=== PATIENT | female | born 1930 | race Caucasian/White ===

== ENCOUNTER → 2017-01-04 | Day surgery (SDC) | payer MEDICARE ==
[~2017-01-04] MED LIST: AMLO5TAB96 PO; B COTAB3 PO; BENI40TA30 PO; BUME0.5T PO; CARV6.25 PO; FERR324T4 PO; GABA300 PO; IMDU60TA PO; LEVO.05 PO; LIDOCAINE 1.5%/EPINEPHrine 1:200,000 PF SOLN 30 ML AMP ONE; PROPOFOL 200 MG/20 ML AMP IV ONE; PROT40TA PO; SODIUM CHLOR 0.9% 1000 ML BAG IV ONE; ULOR40TA PO; VITA500T49 PO; ZOCO40TA PO; ceFAZolin INJ 1,000 MG VIAL ONE
--- NOTE | 2017-01-07 09:32 | MP ---
cc: DARLYN MCGOWAN DATE OF SURGERY 01/04/2017 PREOPERATIVE DIAGNOSIS Non-used left brachiocephalic AV fistula. POSTOPERATIVE DIAGNOSIS Non-used left brachiocephalic AV fistula. PROCEDURE Sacrifice ligation left brachiocephalic AV fistula. SURGEON Darlyn Mcgowan MD ANESTHESIA Local MAC DESCRIPTION OF PROCEDURE With the patient in the supine position, IV sedation was induced, the right left arm then prepped with Betadine and draped in a sterile fashion. Following a protocol time-out, the skin and subcutaneous tissue within the proposed incisional area was preemptively infiltrated with 1% Xylocaine with epinephrine. The old AV fistula creation scar was re-incised. The cephalic vein immediately proximal to the arterial anastomosis was circumferentially mobilized and triply ligated with 3-0 silk. Strict hemostasis was assured. The incision was closed with continuous subcuticular 5-0 Monocryl. Steri-Strips and sterile gauze dressing applied. No operative complications. The patient returned to the recovery room in stable condition having tolerated procedure well. MD CELESTE Mar/CHANDNI /5:38 PM /9:29 AM
== END | disposition home or self-care (01) ==
LOC: ESDC 13:55
PROVIDERS: ATTEND Surgery Vascular Surgery
DX: Z45.2 Encounter for adjustment and management of vascular access device (principal); N18.6 End stage renal disease
CPT/HCPCS: 01844; 37607; J0690; J3010; J7030

== ENCOUNTER → 2017-04-07 | Outpatient (CLI) | payer MEDICARE ==
[~2017-04-07] MED LIST changes: +AMLO5 PO; +ASPI-110 PO; +BENI40TA3 PO; +BUME1TAB PO; +FERR325T8 PO; +FISH1200 PO; +GABA300C5 PO; +ISOS60TA PO; -LIDOCAINE 1.5%/EPINEPHrine 1:200,000 PF SOLN 30 ML AMP ONE; +LIPI40TA PO; -PROPOFOL 200 MG/20 ML AMP IV ONE; -SODIUM CHLOR 0.9% 1000 ML BAG IV ONE; +VITA10004 PO; +VITACAP7 PO; -ceFAZolin INJ 1,000 MG VIAL ONE
[2017-04-07 10:05] LABS: HEMATOCRIT 31.3 % (35.0-46.0); MEAN CELL VOLUME 98.8 FL (80.0-100.0); MEAN CORPUSCULAR HEMOGLOBIN 32.6 PG (27.0-34.0); PLATELET COUNT 201 TH/MM3 (150-450); RED BLOOD COUNT 3.17 MIL/MM3 (4.00-5.30); RED CELL DISTRIBUTION WIDTH 14.1 % (11.6-17.2); REVIEW FLAG FINAL; WHITE BLOOD COUNT 7.6 TH/MM3 (4.0-11.0)
[2017-04-07 10:12] LABS: BACTERIA, URINE MOD /hpf; BLOOD, URINE NEG (NEG); COMMENT (UR) CATH-CULTURE IND; CULTURE IF INDICATED CATH CULTURE IND; GLUCOSE,URINE NEG (NEG); KETONE, URINE NEG (NEG); NITRITE,URINE POS (NEG); SQUAMOUS EPITHELIAL CELL URINE 1 /hpf (0-5); URINE COLOR YELLOW (YELLW/STRAW)
[2017-04-07 10:15] LABS: APTT (PATIENT) 27.5 SEC (24.3-30.1); PROTHROMBIN TIME - PATIENT 10.6 SEC (9.8-11.6)
[2017-04-07 10:48] LABS: BICARBONATE 31.1 MEQ/L (21.0-32.0)
--- NOTE | 2017-04-07 14:38 | EKG ---
Date Performed: 04/07/2017 Time Performed: 09:23:00 PTAGE: 86 years EKG: ATRIAL FIBRILLATION LOW QRS VOLTAGE DELAYED R WAVE PROGRESSION ABNORMAL ECG PREVIOUS TRACING : 11/25/2011 10.47 Compared to prior tracing no significant change DOCTOR: Mo Andrews Interpretating Date/Time 04/07/2017 14:36:32
== END ==
LOC: CPRE 08:47
PROVIDERS: ATTEND Orthopaedic Surgery
DX: Z01.810 Encounter for preprocedural cardiovascular examination (principal); Z01.812 Encounter for preprocedural laboratory examination; M79.609 Pain in unspecified limb; I10 Essential (primary) hypertension; M19.012 Primary osteoarthritis, left shoulder; B96.20 Unspecified Escherichia coli [E. coli] as the cause of diseases classified elsewhere; I48.91 Unspecified atrial fibrillation; R82.90 Unspecified abnormal findings in urine
CPT/HCPCS: 36415; 80048; 81001; 85027; 85610; 85730; 87077; 87086; 87186; 93005

== ENCOUNTER → 2017-04-23 | Outpatient (CLI) | payer MEDICARE ==
[~2017-04-23] MED LIST changes: -AMLO5TAB96 PO; -B COTAB3 PO; -BENI40TA30 PO; -BUME0.5T PO; -FERR324T4 PO; -GABA300 PO; -IMDU60TA PO; -PROT40TA PO; -VITA500T49 PO; -ZOCO40TA PO
[2017-04-23 11:18] LABS: BACTERIA, URINE RARE /hpf; BLOOD, URINE NEG (NEG); COMMENT (UR) CULT NOT INDICATED; CULTURE IF INDICATED CULT NOT INDICATED; GLUCOSE,URINE NEG (NEG); HYALINE CAST, URINE 4 /lpf (RARE); KETONE, URINE NEG (NEG); MUCUS URINE FEW /lpf (OCC); NITRITE,URINE NEG (NEG); SQUAMOUS EPITHELIAL CELL URINE 2 /hpf (0-5); URINE COLOR YELLOW (YELLW/STRAW)
== END ==
LOC: CPRE 09:42
PROVIDERS: ATTEND Orthopaedic Surgery
DX: Z01.812 Encounter for preprocedural laboratory examination (principal)
CPT/HCPCS: 81001

== ENCOUNTER 2017-07-29 10:33 | Inpatient (IN) | payer MEDICARE ==
[~2017-07-29] VITALS: Ht 160 cm; Wt 96.5 kg
[2017-07-29] VITALS (16 sets, daily range): BP systolic 116–208; BP diastolic 57–100; PULSE 12–93; RESP 13–28; TEMP 97.7; O2SAT 93–100
[~2017-07-29 10:33] MED LIST changes: -ASPI-110 PO; +ASPI1TAB57 PO; +BENI40TA29 PO; -BENI40TA3 PO; +FERR325T18 PO; -FERR325T8 PO
--- NOTE | 2017-07-29 11:23 | PD ---
HPI Chief Complaint: Respiratory Symptoms Time Seen by Provider: 11:03 Travel History International Travel<30 days: No Contact w/Intl Traveler<30days: No Traveled to known affect area: No History of Present Illness HPI 87yo F presented to the ED via [facility] for SOB. Pt is a poor historian and disoriented, so limited history was obtained and unaware of her baseline mental status. She did state that she feels "lowsy" and "sometimes feels SOB and sometimes has chest pain." Per [facility], she was at 86% O2 saturation on room air, and went up to 95% saturation with 2L on nasal cannula. Per the nurse, she has a history of CHF, COPD, and AFib. Pt does live alone and was able to call [facility] on her own. I was unable to obtain much of a ROS due to patient's current mental status, but she did report some leg swelling, SOB and chest pain. Modifying Factors: None Associated Signs & Symptoms: Worsening respiratory distress, disorientation Risk Factors: Elderly, CHF history, COPD PFSH Past Medical History Hx Anticoagulant Therapy: Yes Arthritis: Yes Asthma: No Atrial Fibrillation: Yes Autoimmune Disease: No Blood Disorders: Yes (ANEMIA) Anxiety: No Heart Rhythm Problems: Yes (A FIB) Cancer: No Cardiovascular Problems: Yes High Cholesterol: Yes Chest Pain: No Congestive Heart Failure: Yes COPD: No Cerebrovascular Accident: No Diabetes: No Diminished Hearing: Yes ([place]) Endocrine: No GERD: No Gout: Yes Genitourinary: Yes (INCONTINENCE) Hepatitis: No Hiatal Hernia: No Heparin Induced Thrombocytopen: No Hypertension: Yes Immune Disorder: Yes (ANEMIA) Implanted Vascular Access Dvce: Yes Kidney Stones: No Medical other: Yes Musculoskeletal: Yes (GOUT, OA) Neurologic: Yes (NEUROPATHY) Psychiatric: No Reproductive: No Respiratory: Yes Immunizations Current: Yes Migraines: No Renal Failure: Yes (1995) Seizures: No Sickle Cell Disease: No Sleep Apnea: No Thyroid Disease: Yes Ulcer: No Past Surgical History Abdominal Surgery: Yes (HERNIA REPAIR) Arteriovenous Shunt: No Body Medical Devices: DISABLED FISTULA LEFT ARM Cardiac Surgery: No Ear Surgery: No Endocrine Surgery: Yes (thyroidectomy) Eye Surgery: Yes (BILAT CATARACTS WITH LENS IMPLANTS) Genitourinary Surgery: Yes (LEFT UPPER ARM FISTULA AND THEN DISABLED) Gynecologic Surgery: Yes (hysterectomy) Hysterectomy: Yes Insulin Pump: No Joint Replacement: Yes (TOTAL KNEE REPLACED 2004 AND 2007) Oral Surgery: Yes (ENDENTURELESS) Thoracic Surgery: No Other Surgery: Yes (THYROIDECTOMY ) Social History Alcohol Use: No Tobacco Use: No Substance Use: No Allergies-Medications (Allergen,Severity, Reaction): Coded Allergies: hydrochlorothiazide (Unverified Allergy, Severe, HIVES, 07/29/17) adhesive (Unverified Allergy, Intermediate, Rash, 07/29/17) allopurinol (Unverified Allergy, Intermediate, HIVES,FEVER, 07/29/17) Uncoded Allergies: PETROLIUM (Allergy, Severe, BLISTERS, 09/19/07) ANY PETROLIUM BASED MEDS LASIX (Allergy, Unknown, UNKNOWN, 11/25/11) VERIFIED WITH DAUGHTER, ROBERT HERRERA ON 11/25/11 Reported Meds & Prescriptions Reported Meds & Active Scripts Active Reported Fish Oil 1200 mg ([place]-3 Fatty Acids) 360 Mg-1,200 Mg Cap 1 Cap PO DAILY Aspirin 81 (Aspirin) 81 Mg Tabdr 81 Mg PO DAILY Ferrous Sulfate 325 Mg (65 Mg Iron) Tablet 325 Mg PO DAILY Vitamin B-12 Cr (Cyanocobalamin) 1,000 Mcg Tab 500 Mcg PO DAILY B Complex (B-Complex Vitamins) 1 Cap 1 Cap PO DAILY Uloric (Febuxostat) 40 Mg Tab 40 Mg PO DAILY Bumetanide 1 Mg Tab 1 Mg PO DAILY Lipitor (Atorvastatin Calcium) 40 Mg Tab 40 Mg PO HS Gabapentin 300 Mg Cap 300 Mg PO HS Norvasc (Amlodipine Besylate) 5 Mg Tab 5 Mg PO DAILY Benicar (Olmesartan) 40 Mg Tab 40 Mg PO DAILY Coreg (Carvedilol) 6.25 Mg Tab 6.25 Mg PO BID Isosorbide Mononitrate ER (Isosorbide Mononitrate) 60 Mg Tab 60 Mg PO DAILY Synthroid (Levothyroxine Sodium) 50 Mcg Tab 50 Mcg PO DAILY Review of Systems Except as stated in HPI: all other systems reviewed are Neg Physical Exam Exam Limitations: Poor Historian Narrative GENERAL: 87yo F who is well-developed and well nourished. Alert and oriented to person and place. Poor historian due to disorientation, in moderate respiratory distress. SKIN: Warm and dry. HEAD: Atraumatic. Normocephalic. ENT: No nasal bleeding or discharge. Mucous membranes pink and moist. NECK: Trachea midline. No JVD. CARDIOVASCULAR: Tachycardiac with regular rhythm. RESPIRATORY: No accessory muscle use. Breath sounds diminished bilaterally. Rales bilaterally. GASTROINTESTINAL: Abdomen soft, non-tender, nondistended. Hepatic and splenic margins not palpable. MUSCULOSKELETAL: Extremities without clubbing, cyanosis, or edema. No obvious deformities. NEUROLOGICAL: Awake and alert. No obvious cranial nerve deficits. Motor grossly within normal limits. Normal speech. PSYCHIATRIC: Appropriate mood and affect; insight and judgment normal. Data Data Last Documented VS Vital Signs Date Time Temp Pulse Resp B/P (MAP) Pulse Ox O2 Delivery O2 Flow Rate FiO2 07/29/17 13:51 89 27 172/78 (109) 94 4.00 07/29/17 11:29 Nasal Cannula 07/29/17 11:13 97.7 Orders Orders Complete Blood Count With Diff (07/29/17 11:03) Comprehensive Metabolic Panel (07/29/17 11:03) B-Type Natriuretic Peptide (07/29/17 11:03) Iv Access Insert/Monitor (07/29/17 11:03) Electrocardiogram (07/29/17 11:03) Ecg Monitoring (07/29/17 11:03) Oximetry (07/29/17 11:03) Oxygen Administration (07/29/17 11:03) Chest, Single Ap (07/29/17 11:03) Sodium Chloride 0.9% Flush (Ns Flush) (07/29/17 11:15) Furosemide Inj (Lasix Inj) (07/29/17 13:45) Resp Request For Service (07/29/17 13:42) Arterial Blood Gas (Abg) (07/29/17 13:42) Vital Signs (Adult) LEVON.Q4H (07/29/17 13:54) Resp Oxygen Robert C Titrat 1-4 L (07/29/17 ) Basic Metabolic Panel (Bmp) (07/30/17 06:00) Ondansetron Inj (Zofran Inj) (07/29/17 14:00) Acetaminophen (Tylenol) (07/29/17 14:00) Admit Order (Ed Use Only) (07/29/17 14:02) Labs Laboratory Tests Test 07/29/17 11:25 07/29/17 13:57 White Blood Count 9.1 TH/MM3 Red Blood Count 3.65 MIL/MM3 Hemoglobin 12.0 GM/DL Hematocrit 37.2 % Mean Corpuscular Volume 101.8 FL Mean Corpuscular Hemoglobin 32.7 PG Mean Corpuscular Hemoglobin Concent 32.1 % Red Cell Distribution Width 16.3 % Platelet Count 197 TH/MM3 Mean Platelet Volume 8.5 FL Neutrophils (%) (Auto) 70.3 % Lymphocytes (%) (Auto) 19.5 % Monocytes (%) (Auto) 9.2 % Eosinophils (%) (Auto) 0.3 % Basophils (%) (Auto) 0.7 % Neutrophils # (Auto) 6.4 TH/MM3 Lymphocytes # (Auto) 1.8 TH/MM3 Monocytes # (Auto) 0.8 TH/MM3 Eosinophils # (Auto) 0.0 TH/MM3 Basophils # (Auto) 0.1 TH/MM3 CBC Comment AUTO DIFF Differential Total Cells Counted 100 Neutrophils % (Manual) 74 % Lymphocytes % 15 % Monocytes % 9 % Eosinophils % 1 % Neutrophils # (Manual) 6.8 TH/MM3 Metamyelocytes 1 % Nucleated Red Blood Cells 4 /100 WBC Differential Comment FINAL DIFF MANUAL Platelet Estimate NORMAL Platelet Morphology Comment NORMAL Ovalocytes 1+ Blood Urea Nitrogen 30 MG/DL Creatinine 2.18 MG/DL Random Glucose 107 MG/DL Total Protein 7.2 GM/DL Albumin 3.5 GM/DL Calcium Level 8.7 MG/DL Alkaline Phosphatase 56 U/L Aspartate Amino Transf (AST/SGOT) 9 U/L Alanine Aminotransferase (ALT/SGPT) 18 U/L Total Bilirubin 0.5 MG/DL Sodium Level 144 MEQ/L Potassium Level 4.6 MEQ/L Chloride Level 107 MEQ/L Carbon Dioxide Level 33.2 MEQ/L Anion Gap 4 MEQ/L Estimat Glomerular Filtration Rate 21 ML/MIN B-Type Natriuretic Peptide 861 PG/ML Blood Gas Puncture Site RT RADIAL Blood Gas Patient Temperature 98.6 Blood Gas HCO3 31 mmol/L Blood Gas Base Excess 0.8 mmol/L Blood Gas Oxygen Saturation 93 % Arterial Blood pH 7.03 Arterial Blood Partial Pressure CO2 124 mmHg Arterial Blood Partial Pressure O2 99 mmHG Arterial Blood Oxygen Content 15.7 Vol % Arterial Blood Carboxyhemoglobin 2.1 % Arterial Blood Methemoglobin 0.5 % Blood Gas Hemoglobin 11.9 G/DL Oxygen Delivery Device NASAL CANNULA Blood Gas Liter Flow 3 L/M MDM Medical Decision Making Medical Screen Exam Complete: Yes Emergency Medical Condition: Yes Medical Record Reviewed: Yes Interpretation(s) EKG shows A. fib at a rate of 88 bpm with no signs of acute ST-T changes. Laboratory Tests Test 07/29/17 11:25 07/29/17 13:57 Red Blood Count 3.65 MIL/MM3 (4.00-5.30) Mean Corpuscular Volume 101.8 FL (80.0-100.0) Neutrophils (%) (Auto) 70.3 % (16.0-70.0) Monocytes (%) (Auto) 9.2 % (0.0-8.0) Neutrophils % (Manual) 74 % (16-70) Monocytes % 9 % (0-8) Nucleated Red Blood Cells 4 /100 WBC (0-0) Ovalocytes 1+ (NORMAL) Blood Urea Nitrogen 30 MG/DL (7-18) Creatinine 2.18 MG/DL (0.50-1.00) Random Glucose 107 MG/DL (74-106) Aspartate Amino Transf (AST/SGOT) 9 U/L (15-37) Carbon Dioxide Level 33.2 MEQ/L (21.0-32.0) Anion Gap 4 MEQ/L (5-15) Estimat Glomerular Filtration Rate 21 ML/MIN (>89) B-Type Natriuretic Peptide 861 PG/ML (0-100) Blood Gas HCO3 31 mmol/L (22-26) Arterial Blood pH 7.03 (7.380-7.420) Arterial Blood Partial Pressure CO2 124 mmHg (38-42) Blood Gas Hemoglobin 11.9 G/DL (12.0-16.0) Last 24 hours Impressions Chest X-Ray 07/29/17 1103 Signed Impressions: Service Date/Time: July 11:38 - CONCLUSION: Normal examination except for some increased density left lung base could be a small area of consolidation or pleural effusion. Van Salmon MD Differential Diagnosis Respiratory distress, altered mental status: Pneumonia versus sepsis versus dehydration versus CHF versus COPD exacerbation versus dysrhythmias Narrative Course Symptoms and lab work would indicate underlying CHF. Lasix was ordered for the patient and she was put on oxygen. Lab work did not show significant metabolic issues. Her saturations are improved. However, on reevaluation an hour later after family had come in to see the patient, the patient looked much more lethargic. ABG was ordered on the patient. Case had been discussed with Dr. Ball for admission at this point. ABG returned and she had notable respiratory acidosis. At this point, BiPAP had been ordered and bicarbonate was ordered for the patient because of severe acidosis. I have discussed the findings with the family and have discussed CODE STATUS with the family and patient's daughter states that patient has actually expressed DNR wishes before and it is documented in her long term paperwork as well as during previous surgical treatment. At this point, DNR paperwork was entered for the patient. Diagnosis Primary Impression: Hypercapnic respiratory failure Qualified Codes: J96.02 - Acute respiratory failure with hypercapnia Admitting Information Admitting Physician Requests: Admit Vipul García MD Jul 29, 2017 11:23
[2017-07-29 11:57] LABS: AUTOMATED NEUTROPHIL # 6.4 TH/MM3 (1.8-7.7); BASOPHIL # 0.1 TH/MM3 (0-0.2); BASOPHIL % 0.7 % (0.0-2.0); EOSINOPHIL % 0.3 % (0.0-4.0); HEMATOCRIT 37.2 % (35.0-46.0); LYMPH % 19.5 % (9.0-44.0); LYMPHOCYTE # 1.8 TH/MM3 (1.0-4.8); MEAN CELL VOLUME 101.8 FL (80.0-100.0); MEAN CORPUSCULAR HEMOGLOBIN 32.7 PG (27.0-34.0); MEAN CORPUSCULAR HGB CONC 32.1 % (32.0-36.0); MEAN PLATELET VOLUME 8.5 FL (7.0-11.0); MONO % 9.2 % (0.0-8.0); MONOCYTE # 0.8 TH/MM3 (0-0.9); NEUT % 70.3 % (16.0-70.0); PLATELET COUNT 197 TH/MM3 (150-450); RED BLOOD COUNT 3.65 MIL/MM3 (4.00-5.30); RED CELL DISTRIBUTION WIDTH 16.3 % (11.6-17.2); WHITE BLOOD COUNT 9.1 TH/MM3 (4.0-11.0)
--- NOTE | 2017-07-29 12:02 | RADRPT ---
EXAM DATE/TIME: 07/29/2017 11:38 [place] COMPARISON: No previous studies available for comparison. INDICATIONS : Short of breath, confusion, weakness. MEDICAL HISTORY : Renal failure, acute. SURGICAL HISTORY : None. ENCOUNTER: Initial ACUITY: 1 day PAIN SCORE: Non-responsive. LOCATION: Bilateral chest FINDINGS: A single view of the chest demonstrates the lungs to be symmetrically aerated without evidence of mas s, infiltrate or effusion except at the left lung base. The cardiomediastinal contours are unremarka ble. Osseous structures are intact. CONCLUSION: Normal examination except for some increased density left lung base could be a small area of consolid ation or pleural effusion. Van Salmon MD on July 29, 2017 at 11:59 Board Certified Radiologist. This report was verified electronically.
[2017-07-29 12:05] LABS: ALBUMIN 3.5 GM/DL (3.4-5.0); ALT (GPT) 18 U/L (10-53); AST (GOT) 9 U/L (15-37); BICARBONATE 33.2 MEQ/L (21.0-32.0); BLOOD UREA NITROGEN 30 MG/DL (7-18); CALCIUM 8.7 MG/DL (8.5-10.1); CHLORIDE 107 MEQ/L (98-107); CREATININE 2.18 MG/DL (0.50-1.00); GLOMERULAR FILTRATION RATE 21 ML/MIN (>89); GLUCOSE,RANDOM 107 MG/DL (74-106); SODIUM (NA) 144 MEQ/L (136-145)
[2017-07-29 12:07] LABS: ALKALINE PHOSPHATASE 56 U/L (45-117); TOTAL BILIRUBIN ADULT 0.5 MG/DL (0.2-1.0); TOTAL PROTEIN 7.2 GM/DL (6.4-8.2)
[2017-07-29 12:30] LABS: CORRECTED NUCLEATED RBC 4 /100 WBC (0-0); LYMPHOCYTES 15 % (9-44); METAMYELOCYTES 1 % (0-1); MONOCYTES 9 % (0-8); NEUTROPHIL # MANUAL DIFF 6.8 TH/MM3 (1.8-7.7); NUCLEATED RED BLOOD CELL 4 (0-0); POLYS (SEG NEUTROPHILS) 74 % (16-70)
[2017-07-29 12:31] LABS: OVALOCYTES 1+ (NORMAL)
[2017-07-29] MEDS ORDERED: FUROSEMIDE 40 MG/4 ML VIAL IV PUSH ONE (13:45)
[2017-07-29] MEDS ORDERED: ONDANSETRON HCL 4 MG/2 ML VIAL IV PUSH PRN (14:00)
[2017-07-29] MEDS ORDERED: ACETAMINOPHEN 325 MG TAB PO PRN (14:00)
[2017-07-29] MEDS ORDERED: SODIUM BICARBONATE 8.4% INJ 50 MEQ/50 ML SYR IV PUSH ONE (14:15)
[2017-07-29] MEDS ORDERED: ENALAPRILAT 1.25 MG/ML VIAL IV PUSH PRN (14:30)
--- NOTE | 2017-07-29 14:37 | HHI.HP ---
[facility] Service [facility] Primary Care Physician Kodi Maier MD Admission Diagnosis CHF Diagnoses: (1) Hypercapnic respiratory failure Diagnosis: Principal Chief Complaint: generalized weakness Travel History International Travel<30 Days: No Contact w/Intl Traveler <30 Da: No Traveled to Known Affected Are: No History of Present Illness patient is a 87 y/o female with history of CHF, hypertension, CKD, was brought to ER with altered mental status. the patient was lethargic at the time of my evaluation and most of the information was obtained from her daughter at the bedside. she says that she hasn't been as active for the past few days. there's no definite report of chest pain, fever. although she says that she's had some sob recently. she lives alone but being helped by the daughter few days a week. she normally walks around the house with using her cane. she says that her son few months ago and since then her condition seems to be declining. she says that ' her mother said ( a few times) that she was just tired '. Review of Systems ROS Limitations: Altered Mental Status Past Family Social History Past Medical History hypertension CHF CKD Hypothyroidism Past Surgical History knee replacement thyroidectomy AV fistula placement Reported Medications Fish Oil 1200 mg ([place]-3 Fatty Acids) 360 Mg-1,200 Mg Cap 1 Cap PO DAILY Aspirin 81 (Aspirin) 81 Mg Tabdr 81 Mg PO DAILY Ferrous Sulfate 325 Mg (65 Mg Iron) Tablet 325 Mg PO DAILY Vitamin B-12 Cr (Cyanocobalamin) 1,000 Mcg Tab 500 Mcg PO DAILY B Complex (B-Complex Vitamins) 1 Cap 1 Cap PO DAILY Uloric (Febuxostat) 40 Mg Tab 40 Mg PO DAILY Bumetanide 1 Mg Tab 1 Mg PO DAILY Lipitor (Atorvastatin Calcium) 40 Mg Tab 40 Mg PO HS Gabapentin 300 Mg Cap 300 Mg PO HS Norvasc (Amlodipine Besylate) 5 Mg Tab 5 Mg PO DAILY Benicar (Olmesartan) 40 Mg Tab 40 Mg PO DAILY Coreg (Carvedilol) 6.25 Mg Tab 6.25 Mg PO BID Isosorbide Mononitrate ER (Isosorbide Mononitrate) 60 Mg Tab 60 Mg PO DAILY Synthroid (Levothyroxine Sodium) 50 Mcg Tab 50 Mcg PO DAILY Allergies: Coded Allergies: hydrochlorothiazide (Unverified Allergy, Severe, HIVES, 07/29/17) adhesive (Unverified Allergy, Intermediate, Rash, 07/29/17) allopurinol (Unverified Allergy, Intermediate, HIVES,FEVER, 07/29/17) Uncoded Allergies: PETROLIUM (Allergy, Severe, BLISTERS, 09/19/07) ANY PETROLIUM BASED MEDS LASIX (Allergy, Unknown, UNKNOWN, 11/25/11) VERIFIED WITH DAUGHTER, ROBERT HERRERA ON 11/25/11 Active Ordered Medications Inpatient Medications Acetaminophen (Tylenol) 650 mg Q4H PRN PO FEVER/PAIN 1-2; Start 07/29/17 at 14: 00 Furosemide (Lasix Inj) 40 mg ONCE ONCE IV PUSH Last administered on 07/29/17at 13:47; Start 07/29/17 at 13:45; Stop 07/29/17 at 13:46; Status DC Ondansetron HCl (Zofran Inj) 4 mg Q8HR PRN IV PUSH NAUSEA; Start 07/29/17 at 14 :00 Sodium Bicarbonate (Sodium Bicarbonate 8.4% Inj) 50 meq ONCE ONCE IV PUSH ; Start 07/29/17 at 14:15; Stop 07/29/17 at 14:16; Status DC Sodium Chloride (NS Flush) 2 ml UNSCH PRN IVF FLUSH AFTER USING IV ACCESS; Start 07/29/17 at 11:15 Family History not relevant to this admission. Social History lives alone at home but being helped by the daughter. Physical Exam Vital Signs Vital Signs Date Time Temp Pulse Resp B/P (MAP) Pulse Ox O2 Delivery O2 Flow Rate FiO2 07/29/17 13:51 89 27 172/78 (109) 94 4.00 07/29/17 11:29 88 22 195/87 (123) 94 Nasal Cannula 4.00 07/29/17 11:13 97.7 07/29/17 11:09 91 Nasal Cannula 3.00 07/29/17 11:03 28 94 Nasal Cannula 3.00 07/29/17 10:51 89 28 199/100 (133) 97 Physical Exam GENERAL:elderly female, lethargic- SKIN: No rashes, ecchymoses or lesions. Cool and dry. HEAD: Atraumatic. Normocephalic. No temporal or scalp tenderness. EYES: Pupils equal round and reactive. Extraocular motions intact. No scleral icterus. No injection or drainage. ENT: Nose without bleeding, purulent drainage or septal hematoma. Throat without erythema, tonsillar hypertrophy or exudate. Uvula midline. Airway patent. NECK: Trachea midline. No JVD or lymphadenopathy. Supple, nontender, no meningeal signs. CARDIOVASCULAR: Regular rate and rhythm without murmurs, gallops, or rubs. RESPIRATORY: Clear to auscultation. Breath sounds equal bilaterally. No wheezes , rales, or rhonchi. GASTROINTESTINAL: Abdomen soft, non-tender, nondistended. No hepato-splenomegaly , or palpable masses. No guarding. MUSCULOSKELETAL: Extremities with bilateral pedal edema. NEUROLOGICAL: lethargic- but opens the eyes briefly to calling her name. Laboratory Laboratory Tests Test 07/29/17 11:25 07/29/17 13:57 White Blood Count 9.1 Red Blood Count 3.65 Hemoglobin 12.0 Hematocrit 37.2 Mean Corpuscular Volume 101.8 Mean Corpuscular Hemoglobin 32.7 Mean Corpuscular Hemoglobin Concent 32.1 Red Cell Distribution Width 16.3 Platelet Count 197 Mean Platelet Volume 8.5 Neutrophils (%) (Auto) 70.3 Lymphocytes (%) (Auto) 19.5 Monocytes (%) (Auto) 9.2 Eosinophils (%) (Auto) 0.3 Basophils (%) (Auto) 0.7 Neutrophils # (Auto) 6.4 Lymphocytes # (Auto) 1.8 Monocytes # (Auto) 0.8 Eosinophils # (Auto) 0.0 Basophils # (Auto) 0.1 CBC Comment AUTO DIFF Differential Total Cells Counted 100 Neutrophils % (Manual) 74 Lymphocytes % 15 Monocytes % 9 Eosinophils % 1 Neutrophils # (Manual) 6.8 Metamyelocytes 1 Nucleated Red Blood Cells 4 Differential Comment FINAL DIFF MANUAL Platelet Estimate NORMAL Platelet Morphology Comment NORMAL Ovalocytes 1+ Blood Urea Nitrogen 30 Creatinine 2.18 Random Glucose 107 Total Protein 7.2 Albumin 3.5 Calcium Level 8.7 Alkaline Phosphatase 56 Aspartate Amino Transf (AST/SGOT) 9 Alanine Aminotransferase (ALT/SGPT) 18 Total Bilirubin 0.5 Sodium Level 144 Potassium Level 4.6 Chloride Level 107 Carbon Dioxide Level 33.2 Anion Gap 4 Estimat Glomerular Filtration Rate 21 B-Type Natriuretic Peptide 861 Blood Gas Puncture Site RT RADIAL Blood Gas Patient Temperature 98.6 Blood Gas HCO3 31 Blood Gas Base Excess 0.8 Blood Gas Oxygen Saturation 93 Arterial Blood pH 7.03 Arterial Blood Partial Pressure CO2 124 Arterial Blood Partial Pressure O2 99 Arterial Blood Oxygen Content 15.7 Arterial Blood Carboxyhemoglobin 2.1 Arterial Blood Methemoglobin 0.5 Blood Gas Hemoglobin 11.9 Oxygen Delivery Device NASAL CANNULA Blood Gas Liter Flow 3 Result Diagram: 07/29/17 1125 07/29/17 1125 Imaging Last Impressions Chest X-Ray 07/29/17 1103 Signed Impressions: Service Date/Time: July 11:38 - CONCLUSION: Normal examination except for some increased density left lung base could be a small area of consolidation or pleural effusion. MD Diallo Monterroso VTE Risk Assessment Diallo VTE Risk Assessment: Mod/High Risk (score >= 2) Caprini Risk Assessment Model Point Value = 1 Point Value = 2 Point Value = 3 Point Value = 5 Age 41-60 Minor surgery BMI > 25 kg/m2 Swollen legs Varicose veins or History of unexplained or recurrent spontaneous Oral contraceptives or hormone replacement Sepsis (< 1 month) Serious lung disease, including pneumonia (< 1 month) Abnormal pulmonary function Acute myocardial infarction Congestive heart failure (< 1 month) History of inflammatory bowel disease Medical patient at bed rest Age 61-74 Arthroscopic surgery Major open surgery (> 45 min) Laparoscopic surgery (> 45 min) Malignancy Confined to bed (> 72 hours) Immobilizing plaster cast Central venous access Age >= 75 History of VTE Family history of VTE Factor V Leiden Prothrombin [id number] Lupus anticoagulant Anticardiolipin antibodies Elevated serum homocysteine Heparin-induced thrombocytopenia Other congenital or acquired thrombophilia Stroke (< 1 month) Elective arthroplasty Hip, pelvis, or leg fracture Acute spinal cord injury (< 1 month) Prophylaxis Regimen Total Risk Factor Score Risk Level Prophylaxis Regimen 0-1 Low Early ambulation 2 Moderate Order ONE of the following: *Sequential Compression Device (SCD) *Heparin 5000 units SQ BID 3-4 Higher Order ONE of the following medications: *Heparin 5000 units SQ TID *Enoxaparin/Lovenox 40 mg SQ daily (WT < 150 kg, CrCl > 30 mL/min) *Enoxaparin/Lovenox 30 mg SQ daily (WT < 150 kg, CrCl > 10-29 mL/min) *Enoxaparin/Lovenox 30 mg SQ BID (WT < 150 kg, CrCl > 30 mL/min) AND/OR *Sequential Compression Device (SCD) 5 or more Highest Order ONE of the following medications: *Heparin 5000 units SQ TID (Preferred with Epidurals) *Enoxaparin/Lovenox 40 mg SQ daily (WT < 150 kg, CrCl > 30 mL/min) *Enoxaparin/Lovenox 30 mg SQ daily (WT < 150 kg, CrCl > 10-29 mL/min) *Enoxaparin/Lovenox 30 mg SQ BID (WT < 150 kg, CrCl > 30 mL/min) AND *Sequential Compression Device (SCD) Assessment and Plan Assessment and Plan A/P - acute hypercapnic respiratory failure / respiratory acidosis due to acute on chronic diastolic CHF start on BiPaP- monitor the ABG and clinical response -received a dose of lasix in ER- will continue with Lasix- monitor I/O- consult cardiology ( ) -CKD- at her baseline- will monitor closely while on diuretics -hypertension; will resume home meds when is more awake and alert -consult PT when is more awake -DVT prophylaxis with subq Lovenox -DNR / and hospice consult per my lengthy discussion with the patient's daughter. will monitor closely and will consider airplane technician evaluation- pending the clinical course and repeated ABG. critical care time 35 min. Code Status DNR. Discussed Condition With the patient's daughter and ER physician. Physician Certification 2 Midnight Certification Type: Admission for Inpatient Services Order for Inpatient Services The services are ordered in accordance with Medicare regulations or non- Medicare payer requirements, as applicable. In the case of services not specified as inpatient-only, they are appropriately provided as inpatient services in accordance with the 2-midnight benchmark. Estimated LOS (days): 2 days is the estimated time the patient will need to remain in the hospital, assuming treatment plan goals are met and no additional complications. Post-Hospital Plan: Not yet determined Problem Qualifiers (1) Hypercapnic respiratory failure: Qualified Codes: J96.02 - Acute respiratory failure with hypercapnia Wicho Ybarra MD Jul 29, 2017 14:37
[2017-07-29] MEDS ORDERED: FUROSEMIDE 20 MG/2 ML VIAL IV PUSH ONE (16:00)
[2017-07-29] MEDS: DEXT 5%-NACL 0.9% 1000 ML INJ 1,000 ML IV SCH (16:18)
--- NOTE | 2017-07-29 18:21 | HHI.PR ---
Addendum To [facility] Progress Not Reason for addendum: Additonal documentation (repeated ABG was reviewed. the patient is still lethargic. case and findings were d/w the RN, the patient's daughter and ; consult will be placed for bootmaker.) Wicho Ybarra MD Jul 29, 2017 18:21
[2017-07-29 18:26] LABS: AMORPHOUS SEDIMENT, URINE RARE; BACTERIA, URINE MANY /hpf; BILIRUBIN, URINE NEG (NEG); BLOOD, URINE NEG (NEG); GLUCOSE,URINE NEG (NEG); HYALINE CAST, URINE 3 /lpf (RARE); KETONE, URINE NEG (NEG); NITRITE,URINE NEG (NEG); PH, URINE 5.5 (5.0-8.5); SQUAMOUS EPITHELIAL CELL URINE 1 /hpf (0-5); URINE COLOR YELLOW (YELLW/STRAW); URINE LEUKOCYTE ESTERASE LARGE (NEG)
--- NOTE | 2017-07-29 18:57 | EKG ---
Date Performed: 07/29/2017 Time Performed: 11:24:29 PTAGE: 87 years EKG: ATRIAL FIBRILLATION LOW QRS VOLTAGE POSSIBLE ANTERIOR MYOCARDIAL INFARCTION ABNORMAL ECG PREVIOUS TRACING : 04/07/2017 09.23 Since previous tracing, no significant change noted DOCTOR: Trino Franco Interpretating Date/Time 07/29/2017 18:57:01
--- NOTE | 2017-07-29 20:00 | PD.CONS ---
HPI Service Critical Care Medicine Consult Requested By Primary Care Physician Kodi Maier MD History of Present Illness 87-year-old female with history of CHF, hypertension, CKD, was brought with altered mental status. Per chart review the patient hasn't been as active for the past few days. She lives alone but being helped by the daughter few days a week. She normally walks around the house with using her cane. She was initially admitted to hospitalist service with severe hypercarbic respiratory acidosis and was placed on BiPAP. There was no improvement in patient's mentation or respiratory condition as well as lab results on ABG and critical care service was consulted. Review of Systems ROS Unobtainable patient is lethargic on facemask BiPAP Past Family Social History Allergies: Coded Allergies: hydrochlorothiazide (Unverified Allergy, Severe, HIVES, 07/29/17) adhesive (Unverified Allergy, Intermediate, Rash, 07/29/17) allopurinol (Unverified Allergy, Intermediate, HIVES,FEVER, 07/29/17) Uncoded Allergies: PETROLIUM (Allergy, Severe, BLISTERS, 09/19/07) ANY PETROLIUM BASED MEDS LASIX (Allergy, Unknown, UNKNOWN, 11/25/11) VERIFIED WITH DAUGHTER, ROBERT HERRERA ON 11/25/11 Past Medical History hypertension CHF CKD Hypothyroidism Past Surgical History knee replacement thyroidectomy AV fistula placement Reported Medications Reported Meds & Active Scripts Active Reported Fish Oil 1200 mg ([place]-3 Fatty Acids) 360 Mg-1,200 Mg Cap 1 Cap PO DAILY Aspirin 81 (Aspirin) 81 Mg Tabdr 81 Mg PO DAILY Ferrous Sulfate 325 Mg (65 Mg Iron) Tablet 325 Mg PO DAILY Vitamin B-12 Cr (Cyanocobalamin) 1,000 Mcg Tab 500 Mcg PO DAILY B Complex (B-Complex Vitamins) 1 Cap 1 Cap PO DAILY Uloric (Febuxostat) 40 Mg Tab 40 Mg PO DAILY Bumetanide 1 Mg Tab 1 Mg PO DAILY Lipitor (Atorvastatin Calcium) 40 Mg Tab 40 Mg PO HS Gabapentin 300 Mg Cap 300 Mg PO HS Norvasc (Amlodipine Besylate) 5 Mg Tab 5 Mg PO DAILY Benicar (Olmesartan) 40 Mg Tab 40 Mg PO DAILY Coreg (Carvedilol) 6.25 Mg Tab 6.25 Mg PO BID Isosorbide Mononitrate ER (Isosorbide Mononitrate) 60 Mg Tab 60 Mg PO DAILY Synthroid (Levothyroxine Sodium) 50 Mcg Tab 50 Mcg PO DAILY Active Ordered Medications Current Medications Medications (Trade) Dose Ordered Sig/Rene Route PRN Reason Start Time Stop Time Status Last Admin Dose Admin Sodium Chloride (NS Flush) 2 ml UNSCH PRN IVF FLUSH AFTER USING IV ACCESS 07/29/17 11:15 Ondansetron HCl (Zofran Inj) 4 mg Q8HR PRN IV PUSH NAUSEA 07/29/17 14:00 Acetaminophen (Tylenol) 650 mg Q4H PRN PO FEVER/PAIN 1-2 07/29/17 14:00 Dextrose/Sodium Chloride 1,000 ml @ 60 mls/hr [id number] IV 07/29/17 14:30 07/29/17 16:18 Furosemide (Lasix Inj) 40 mg DAILY IV PUSH 07/30/17 09:00 Enalaprilat (Vasotec Inj) 1.25 mg Q8H PRN IV PUSH SBP> OR = 180, DBP> OR = 100 07/29/17 14:30 Enoxaparin Sodium (Lovenox Inj) 30 mg Q24H SQ 07/30/17 09:00 Family History Reviewed, not relevant to this admission Social History lives alone at home but being helped by the daughter. Physical Exam Vital Signs Vital Signs Date Time Temp Pulse Resp B/P (MAP) Pulse Ox O2 Delivery O2 Flow Rate FiO2 07/29/17 19:03 67 14 123/57 (79) 99 BiPAP 50 07/29/17 18:38 97 50 07/29/17 16:37 78 21 132/66 (88) 95 BiPAP 50 07/29/17 16:30 95 50 07/29/17 14:25 96 50 07/29/17 14:25 93 20 208/93 (131) 93 BiPAP 50 07/29/17 13:51 89 27 172/78 (109) 94 4.00 07/29/17 11:29 88 22 195/87 (123) 94 Nasal Cannula 4.00 07/29/17 11:13 97.7 07/29/17 11:09 91 Nasal Cannula 3.00 07/29/17 11:03 28 94 Nasal Cannula 3.00 07/29/17 10:51 89 28 199/100 (133) 97 Physical Exam GENERAL: Elderly appearing female, extremely lethargic in moderate respiratory distress SKIN: No rashes, ecchymoses or lesions. Cool and dry. HEAD: Atraumatic. Normocephalic. No temporal or scalp tenderness. EYES: Pupils equal round and reactive. Extraocular motions intact. No scleral icterus. No injection or drainage. ENT: Nose without bleeding, purulent drainage or septal hematoma. Throat without erythema, tonsillar hypertrophy or exudate. Uvula midline. Airway patent. NECK: Trachea midline. No JVD or lymphadenopathy. Supple, nontender, no meningeal signs. CARDIOVASCULAR: Regular rate and rhythm without murmurs, gallops, or rubs. RESPIRATORY: Clear to auscultation. Breath sounds equal bilaterally. No wheezes , rales, or rhonchi. GASTROINTESTINAL: Abdomen soft, non-tender, nondistended. No hepato-splenomegaly , or palpable masses. No guarding. MUSCULOSKELETAL: Extremities with bilateral pedal edema. NEUROLOGICAL: lethargic- but opens the eyes briefly to voice. Laboratory Laboratory Tests Test 07/29/17 11:25 07/29/17 13:57 07/29/17 17:40 07/29/17 18:08 White Blood Count 9.1 Red Blood Count 3.65 Hemoglobin 12.0 Hematocrit 37.2 Mean Corpuscular Volume 101.8 Mean Corpuscular Hemoglobin 32.7 Mean Corpuscular Hemoglobin Concent 32.1 Red Cell Distribution Width 16.3 Platelet Count 197 Mean Platelet Volume 8.5 Neutrophils (%) (Auto) 70.3 Lymphocytes (%) (Auto) 19.5 Monocytes (%) (Auto) 9.2 Eosinophils (%) (Auto) 0.3 Basophils (%) (Auto) 0.7 Neutrophils # (Auto) 6.4 Lymphocytes # (Auto) 1.8 Monocytes # (Auto) 0.8 Eosinophils # (Auto) 0.0 Basophils # (Auto) 0.1 CBC Comment AUTO DIFF Differential Total Cells Counted 100 Neutrophils % (Manual) 74 Lymphocytes % 15 Monocytes % 9 Eosinophils % 1 Neutrophils # (Manual) 6.8 Metamyelocytes 1 Nucleated Red Blood Cells 4 Differential Comment FINAL DIFF MANUAL Platelet Estimate NORMAL Platelet Morphology Comment NORMAL Ovalocytes 1+ Blood Urea Nitrogen 30 Creatinine 2.18 Random Glucose 107 Total Protein 7.2 Albumin 3.5 Calcium Level 8.7 Alkaline Phosphatase 56 Aspartate Amino Transf (AST/SGOT) 9 Alanine Aminotransferase (ALT/SGPT) 18 Total Bilirubin 0.5 Sodium Level 144 Potassium Level 4.6 Chloride Level 107 Carbon Dioxide Level 33.2 Anion Gap 4 Estimat Glomerular Filtration Rate 21 B-Type Natriuretic Peptide 861 Blood Gas Puncture Site RT RADIAL RT RADIAL Blood Gas Patient Temperature 98.6 98.6 Blood Gas HCO3 31 32 Blood Gas Base Excess 0.8 1.1 Blood Gas Oxygen Saturation 93 93 Arterial Blood pH 7.03 7.02 Arterial Blood Partial Pressure CO2 124 128 Arterial Blood Partial Pressure O2 99 87 Arterial Blood Oxygen Content 15.7 15.1 Arterial Blood Carboxyhemoglobin 2.1 2.2 Arterial Blood Methemoglobin 0.5 0.5 Blood Gas Hemoglobin 11.9 11.5 Oxygen Delivery Device NASAL CANNULA BIPAP Blood Gas Liter Flow 3 Blood Gas Ventilator Setting [id number] Blood Gas Inspired Oxygen 50 Urine Color YELLOW Urine Turbidity HAZY Urine pH 5.5 Urine Specific [place] 1.014 Urine Protein 100 Urine Glucose (UA) NEG Urine Ketones NEG Urine Occult Blood NEG Urine Nitrite NEG Urine Bilirubin NEG Urine Urobilinogen LESS THAN 2.0 Urine Leukocyte Esterase LARGE Urine RBC 1 Urine WBC 14 Urine Squamous Epithelial Cells 1 Urine Amorphous Sediment RARE Urine Bacteria MANY Urine Hyaline Casts 3 Microscopic Urinalysis Comment CATH-CULTURE IND Test 07/29/17 19:24 Blood Gas Puncture Site RT RADIAL Blood Gas Patient Temperature 98.6 Blood Gas HCO3 32 Blood Gas Base Excess 1.7 Blood Gas Oxygen Saturation 93 Arterial Blood pH 7.04 Arterial Blood Partial Pressure CO2 124 Arterial Blood Partial Pressure O2 84 Arterial Blood Oxygen Content 14.8 Arterial Blood Carboxyhemoglobin 2.2 Arterial Blood Methemoglobin 0.5 Blood Gas Hemoglobin 11.3 Oxygen Delivery Device BiPAP Blood Gas Ventilator Setting [id number] Blood Gas Inspired Oxygen 50 Date/Time Source Procedure Growth Status 07/29/17 18:08 Urine Catheterized Urine Urine Culture Pending Received Result Diagram: 07/29/17 1125 07/29/17 1125 Imaging Last 24 hours Impressions Chest X-Ray 07/29/17 1103 Signed Impressions: Service Date/Time: July 11:38 - CONCLUSION: Normal examination except for some increased density left lung base could be a small area of consolidation or pleural effusion. Van Salmon MD Septic Shock Reassessment Septic shock perfusion: reassessment completed Assessment and Plan Assessment and Plan Respiratory failure - Hypercarbic respiratory acidosis - DuoNeb scheduled and when necessary - BiPAP - Series of ABGs - Pulmonary consultation - Patient is DNR/DNI status Hypertension - Enalaprilat when necessary to keep SBP below 150 - Norvasc - Coreg - Losartan Congestive heart failure - Lasix when necessary - No exacerbation - BP control - Isosorbide mononitrate - Carvedilol - Losartan - Bumex Chronic kidney disease - Monitor is and os - Electrolytes replacement per ICU protocol - Bumex Hypothyroidism - Levothyroxine DVT GI prophylaxis - Teds SCDs - Lovenox - Heart healthy diet Critical Care: The total critical care time was 35 minutes. Time to perform other separately billable procedures was not included in the critical care time. Anthony Sneed MD Jul 29, 2017 20:00
[2017-07-29] MEDS ORDERED: RESP: ALBUTEROL 2.5 MG/IPRATROPIUM 0.5 MG NEB (PRN) NEB (21:45)
[2017-07-29] MEDS ORDERED: PILL SPLITTER OTHER PRN (23:45)
[2017-07-29] MEDS: RESP: ALBUTEROL 2.5 MG/IPRATROPIUM 0.5 MG NEB (SCH) NEB (23:51)
[2017-07-30] VITALS (19 sets, daily range): BP systolic 100–157; BP diastolic 50–105; PULSE 79–300; RESP 14–25; TEMP 96.6–98.7; O2SAT 0–100
[2017-07-30] MEDS: RESP: ALBUTEROL 2.5 MG/IPRATROPIUM 0.5 MG NEB (SCH) NEB ×5 (03:33→19:58)
[2017-07-30] MEDS: LEVOTHYROXINE SODIUM 50 MCG TAB PO SCH (05:44)
[2017-07-30] MEDS ORDERED: LORazepam 2 MG/ML VIAL ONE (07:19)
[2017-07-30] MEDS ORDERED: HALOPERIDOL LACTATE 5 MG/ML AMP IM ONE (07:30)
[2017-07-30] MEDS ORDERED: DEXMEDETOMIDINE 200 MCG/50 ML Premix IV PRN (08:15)
[2017-07-30] MEDS ORDERED: RASS Change Order XX ONE (08:30)
[2017-07-30] MEDS: ENOXAPARIN SODIUM 30 MG/0.3 ML SYRINGE SQ SCH (08:45)
[2017-07-30] MEDS: SODIUM CHLORIDE 0.9% FLUSH 10 ML FLUSH IVF PRN (08:46)
[2017-07-30] MEDS ORDERED: NON-FORMULARY DRUG (Omega-3 Fatty Acids (Fish Oil 1200 mg) 1 CAP) PO SCH (09:00)
[2017-07-30] MEDS: CYANOCOBALAMIN 1,000 MCG TAB PO SCH (09:00)
[2017-07-30] MEDS ORDERED: FEBUXOSTAT 40 MG PO SCH (09:00)
[2017-07-30] MEDS: CARVEDILOL 6.25 MG TAB PO SCH ×2 (09:00→19:33)
[2017-07-30] MEDS ORDERED: LOSARTAN 50 MG TAB PO SCH (09:00)
[2017-07-30] MEDS: FERROUS SULFATE 325 MG (65 MG ELEMENTAL IRON) TAB PO SCH (09:00)
[2017-07-30] MEDS: ISOSORBIDE MONONITRATE 60 MG TAB PO SCH (09:00)
[2017-07-30] MEDS: amLODIPine BESYLATE 5 MG TAB PO SCH (09:00)
[2017-07-30] MEDS ORDERED: BUMETANIDE 1 MG TAB PO SCH (09:00)
[2017-07-30] MEDS: ASPIRIN EC 81 MG TABEC PO SCH (09:00)
[2017-07-30] MEDS: VITAMIN B COMPLEX/VIT C TAB PO SCH (09:00)
[2017-07-30] MEDS ORDERED: FUROSEMIDE 40 MG/4 ML VIAL IV PUSH SCH (09:00)
[2017-07-30] MEDS ORDERED: DEXMEDETOMIDINE 200 MCG in NS 48 ML IV PRN (09:15)
[2017-07-30] MEDS ORDERED: methylPREDNISolone SOD SUCC 40 MG/1 ML VIAL IV PUSH SCH (10:45)
--- NOTE | 2017-07-30 10:53 | HHI.CCPN ---
Subjective Remarks/Hospital Course 87-year-old female with history of CHF, hypertension, CKD, was brought with altered mental status. Per chart review the patient hasn't been as active for the past few days. She lives alone but being helped by the daughter few days a week. She normally walks around the house with using her cane. She was initially admitted to hospitalist service with severe hypercarbic respiratory acidosis and was placed on BiPAP. There was no improvement in patient's mentation or respiratory condition as well as lab results on ABG and critical care service was consulted. 07/30 Patient was on BIPAP / with 50%FIO2. She was agitated , restless and subsequently placed on Precedex drip. Afebrile. Objective Vital Signs Date Time Temp Pulse Resp B/P (MAP) Pulse Ox O2 Delivery O2 Flow Rate FiO2 07/30/17 08:27 94 50 07/30/17 07:00 234 19 145/70 (95) 07/30/17 07:00 Bi-Pap 07/30/17 03:00 96.6 07/29/17 22:05 15.00 Intake and Output 07/30/17 07/30/17 07/31/17 08:00 16:00 00:00 Intake Total 723 ml Output Total 250 ml Balance 473 ml Result Diagram: 07/29/17 1125 07/29/17 1125 Other Results Laboratory Tests Test 07/29/17 11:25 07/29/17 13:57 07/29/17 17:40 07/29/17 18:08 White Blood Count 9.1 TH/MM3 Red Blood Count 3.65 MIL/MM3 Hemoglobin 12.0 GM/DL Hematocrit 37.2 % Mean Corpuscular Volume 101.8 FL Mean Corpuscular Hemoglobin 32.7 PG Mean Corpuscular Hemoglobin Concent 32.1 % Red Cell Distribution Width 16.3 % Platelet Count 197 TH/MM3 Mean Platelet Volume 8.5 FL Neutrophils (%) (Auto) 70.3 % Lymphocytes (%) (Auto) 19.5 % Monocytes (%) (Auto) 9.2 % Eosinophils (%) (Auto) 0.3 % Basophils (%) (Auto) 0.7 % Neutrophils # (Auto) 6.4 TH/MM3 Lymphocytes # (Auto) 1.8 TH/MM3 Monocytes # (Auto) 0.8 TH/MM3 Eosinophils # (Auto) 0.0 TH/MM3 Basophils # (Auto) 0.1 TH/MM3 CBC Comment AUTO DIFF Differential Total Cells Counted 100 Neutrophils % (Manual) 74 % Lymphocytes % 15 % Monocytes % 9 % Eosinophils % 1 % Neutrophils # (Manual) 6.8 TH/MM3 Metamyelocytes 1 % Nucleated Red Blood Cells 4 /100 WBC Differential Comment FINAL DIFF MANUAL Platelet Estimate NORMAL Platelet Morphology Comment NORMAL Ovalocytes 1+ Blood Urea Nitrogen 30 MG/DL Creatinine 2.18 MG/DL Random Glucose 107 MG/DL Total Protein 7.2 GM/DL Albumin 3.5 GM/DL Calcium Level 8.7 MG/DL Alkaline Phosphatase 56 U/L Aspartate Amino Transf (AST/SGOT) 9 U/L Alanine Aminotransferase (ALT/SGPT) 18 U/L Total Bilirubin 0.5 MG/DL Sodium Level 144 MEQ/L Potassium Level 4.6 MEQ/L Chloride Level 107 MEQ/L Carbon Dioxide Level 33.2 MEQ/L Anion Gap 4 MEQ/L Estimat Glomerular Filtration Rate 21 ML/MIN B-Type Natriuretic Peptide 861 PG/ML Blood Gas Puncture Site RT RADIAL RT RADIAL Blood Gas Patient Temperature 98.6 98.6 Blood Gas HCO3 31 mmol/L 32 mmol/L Blood Gas Base Excess 0.8 mmol/L 1.1 mmol/L Blood Gas Oxygen Saturation 93 % 93 % Arterial Blood pH 7.03 7.02 Arterial Blood Partial Pressure CO2 124 mmHg 128 mmHg Arterial Blood Partial Pressure O2 99 mmHG 87 mmHG Arterial Blood Oxygen Content 15.7 Vol % 15.1 Vol % Arterial Blood Carboxyhemoglobin 2.1 % 2.2 % Arterial Blood Methemoglobin 0.5 % 0.5 % Blood Gas Hemoglobin 11.9 G/DL 11.5 G/DL Oxygen Delivery Device NASAL CANNULA BIPAP Blood Gas Liter Flow 3 L/M Blood Gas Ventilator Setting [id number] Blood Gas Inspired Oxygen 50 % Urine Color YELLOW Urine Turbidity HAZY Urine pH 5.5 Urine Specific [place] 1.014 Urine Protein 100 mg/dL Urine Glucose (UA) NEG mg/dL Urine Ketones NEG mg/dL Urine Occult Blood NEG Urine Nitrite NEG Urine Bilirubin NEG Urine Urobilinogen LESS THAN 2.0 MG/DL Urine Leukocyte Esterase LARGE Urine RBC 1 /hpf Urine WBC 14 /hpf Urine Squamous Epithelial Cells 1 /hpf Urine Amorphous Sediment RARE Urine Bacteria MANY /hpf Urine Hyaline Casts 3 /lpf Microscopic Urinalysis Comment CATH-CULTURE IND Test 1/18/18 19:24 07/29/17 20:46 07/29/17 22:54 07/30/17 05:35 Blood Gas Puncture Site RT RADIAL RT RADIAL RT RADIAL Blood Gas Patient Temperature 98.6 98.6 98.6 Blood Gas HCO3 32 mmol/L 31 mmol/L 32 mmol/L Blood Gas Base Excess 1.7 mmol/L 2.3 mmol/L 4.1 mmol/L Blood Gas Oxygen Saturation 93 % 93 % 93 % Arterial Blood pH 7.04 7.12 7.21 Arterial Blood Partial Pressure CO2 124 mmHg 99 mmHg 82 mmHg Arterial Blood Partial Pressure O2 84 mmHG 81 mmHG 80 mmHg Arterial Blood Oxygen Content 14.8 Vol % 14.8 Vol % 14.3 Vol % Arterial Blood Carboxyhemoglobin 2.2 % 2.3 % 2.0 % Arterial Blood Methemoglobin 0.5 % 0.5 % 1.1 % Blood Gas Hemoglobin 11.3 G/DL 11.2 G/DL 10.9 G/DL Oxygen Delivery Device BiPAP BiPAP BIPAP Blood Gas Ventilator Setting [id number] 18/5 Blood Gas Inspired Oxygen 50 % 50 % 40 % Nasal Screen MRSA (PCR) MRSA NOT DETECTED Imaging Last Impressions Chest X-Ray 07/29/17 1103 Signed Impressions: Service Date/Time: July 11:38 - CONCLUSION: Normal examination except for some increased density left lung base could be a small area of consolidation or pleural effusion. Van Salmon MD Objective Remarks GENERAL: Elderly appearing female was on BIPAP overnight SKIN: No rashes, ecchymoses or lesions. Cool and dry. HEAD: Atraumatic. Normocephalic. No temporal or scalp tenderness. EYES: Pupils equal round and reactive. Extraocular motions intact. No scleral icterus. No injection or drainage. ENT: Nose without bleeding, purulent drainage or septal hematoma. Throat without erythema, tonsillar hypertrophy or exudate. Uvula midline. Airway patent. NECK: Trachea midline. No JVD or lymphadenopathy. Supple, nontender, no meningeal signs. CARDIOVASCULAR: Regular rate and rhythm without murmurs, gallops, or rubs. RESPIRATORY: Clear to auscultation. Breath sounds equal bilaterally. No wheezes , rales, or rhonchi. GASTROINTESTINAL: Abdomen soft, non-tender, nondistended. No hepato-splenomegaly , or palpable masses. No guarding. MUSCULOSKELETAL: Extremities with bilateral pedal edema. NEUROLOGICAL: Agitated and restless A/P Assessment and Plan Plan Neuro: Monitor neuro status and avoid sedatives Precedex if needed for agitation Pulm: Respiratory failure - Hypercarbic respiratory acidosis - DuoNeb scheduled and when necessary - BiPAP, add solumederol 60mg Q8 - Pulmonary consultation - Patient is DNR/DNI status CV: CHF Hypertension Monitor HR and BP keep MAP>65mmHg - Enalaprilat when necessary to keep SBP below 150 - On Norvasc, Coreg, ASA, Imdur , Lipitor. Hold Losartan for renal dysfunction : Chronic kidney disease - Monitor renal function, I/O's, avoid nephrotoxins -On D5NS@60ml/hr, d/c Bumex/Lasix for renal dysfunction. ID: [id number] Place on Rocephin 1gram daily. Monitor for signs of infections ( Fever, WBC) Follow up on urine cx Endo: Hypothyroidism - Continue Levothyroxine -SSI to maintain Euglycemia Heme: Monitor CBC. on FeSO4 325mg daily GI: Speech eval, diet per speech DVT GI prophylaxis - Teds SCDs/Lovenox - Pepcid Palliative care eval to asses with goals of care Patient was made No code DNR on arrival Check labs today Level 3 Nicholas Lewis MD Jul 30, 2017 10:53
[2017-07-30] MEDS ORDERED: GLUCAGON 1 MG/ML VIAL OTHER PRN (11:00)
[2017-07-30] MEDS: cefTRIAXone INJ 1,000 MG in SODIUM CHLORIDE 0.9% INJ 100 ML IV SCH (11:00)
[2017-07-30] MEDS ORDERED: DEXTROSE 50% IN WATER 50 ML VIAL(D50) IV PUSH PRN (11:00)
[2017-07-30] MEDS: INSULIN NovoLIN REGULAR SUPPLEMENTAL SCALE SQ SCH ×4 (11:00→23:00)
[2017-07-30] MEDS: FAMOTIDINE 20 MG/2 ML VIAL IV PUSH SCH ×2 (12:49→23:58)
[2017-07-30] MEDS: methylPREDNISolone SOD SUCC 40 MG/1 ML VIAL IV PUSH SCH ×2 (12:52→23:59)
[2017-07-30 13:18] LABS: AUTOMATED NEUTROPHIL # 6.9 TH/MM3 (1.8-7.7); BASOPHIL % 0.3 % (0.0-2.0); EOSINOPHIL % 0.3 % (0.0-4.0); HEMATOCRIT 34.5 % (35.0-46.0); HEMOGLOBIN 11.1 GM/DL (11.6-15.3); LYMPH % 10.5 % (9.0-44.0); LYMPHOCYTE # 0.9 TH/MM3 (1.0-4.8); MEAN CELL VOLUME 101.9 FL (80.0-100.0); MEAN CORPUSCULAR HEMOGLOBIN 32.7 PG (27.0-34.0); MEAN CORPUSCULAR HGB CONC 32.1 % (32.0-36.0); MEAN PLATELET VOLUME 8.7 FL (7.0-11.0); MONO % 8.6 % (0.0-8.0); MONOCYTE # 0.7 TH/MM3 (0-0.9); NEUT % 80.3 % (16.0-70.0); PLATELET COUNT 174 TH/MM3 (150-450); RED BLOOD COUNT 3.39 MIL/MM3 (4.00-5.30); RED CELL DISTRIBUTION WIDTH 16.7 % (11.6-17.2); WHITE BLOOD COUNT 8.5 TH/MM3 (4.0-11.0)
[2017-07-30 13:43] LABS: ALT (GPT) 14 U/L (10-53); BICARBONATE 33.1 MEQ/L (21.0-32.0); PHOSPHORUS 4.3 MG/DL (2.5-4.9)
[2017-07-30 13:52] LABS: ALKALINE PHOSPHATASE 50 U/L (45-117); AST (GOT) 12 U/L (15-37); BLOOD UREA NITROGEN 36 MG/DL (7-18); CALCIUM 8.5 MG/DL (8.5-10.1); CHLORIDE 104 MEQ/L (98-107); CREATININE 2.42 MG/DL (0.50-1.00); GLOMERULAR FILTRATION RATE 19 ML/MIN (>89); GLUCOSE,RANDOM 93 MG/DL (74-106); MAGNESIUM 2.4 MG/DL (1.5-2.5); SODIUM (NA) 142 MEQ/L (136-145); TOTAL BILIRUBIN ADULT 0.3 MG/DL (0.2-1.0); TOTAL PROTEIN 6.3 GM/DL (6.4-8.2)
--- NOTE | 2017-07-30 13:57 | PD.CONS ---
Consult Service Palliative Care Consult Requested By Dr Mckinney Primary Care Physician Kodi Maier MD Reason for Consultation a. To assist with evaluation and management of symptoms including: dyspnea; lethargy b. To assist medical decision maker(s) with: better understanding of current medical conditions; weighing benefits/burdens of medical treatment options; making medical treatment decisions; clarifying goals of care HPI History of Present Illness Mrs Sutton is an 87 year old female who was living independently, although ambulating with a cane, prior to calling [facility] for assistance on 07/29, reporting increased shortness of breath and chest pain. She has past medical history significant for CHF, CKD, and hypertension, although review of her medical records reflect infrequent hospital admissions in the past five years. In 2010 and 2011 she experienced GI bleed secondary to anticoagulation for atrial fib; she has been off blood thinners since that time and has experienced no additional bleeding. She has had significant history of osteoarthritis and was evaluated recently for left shoulder replacement but learned that surgery was not likely to benefit her and this was not pursued. Son and daughter report that their mother has been declining since the of their brother in November; he had resided with his mother for 61 years. In the ED her EKG showed atrial fib; CXR was essentially normal although with a small left basilar consolidation. Labs showed a mild macrocytic anemia; her BMP was remarkable for creatinine of 2.4 (but has been greater than 2 for the past five years per medical records) and BNP of 861. U/A suggested culture; those results are pending. During her ED course she became more short of breath and more lethargic; ABGs showed significant acidosis with pH 7.02 and hypercapnia with CO2 of 124 and she was placed on Bipap. Her son and daughter elected DNR/DNI status at that time. She was subsequently admitted to the ICU where she continues lethargic on Bipap. Since admission she has been seen by the hospitalist service as well as critical care medicine and speech therapy. She remains on BiPap at 50 FiO2; on steroids and duonebs; on Rocephin empirically pending urine culture. An episode of agitation earlier today required Precedex; she is receiving supportive IV fluids without diuretics due to her renal function. . Function/Cognitive Trajectory Mrs Sutton had been successfully residing independently with assistance a few times a week from her daughter, although her daughter and son both agree that she began to decline after the of her son in November of 2016. Over the past several weeks, they report that Mrs Sutton had begun saying "I''m too tired" as well as noting that she had become less able to get out and shop for groceries, and even less able to ambulate around her house secondary to increasing shortness of breath. The patient had declined any medical intervention until the morning of 07/29 when she told her daughter that she was calling 911 for assistance. Increasing fatigue, increasing shortness of breath, decreased appetite and decreased ability to ambulate around her house all indicate a trajectory of decline, although both her son and daughter state that she was quite sharp mentally and well able to make her views known. . Review of Systems ROS Limitations: Clinical Condition (lethargic on Bipap), Altered Mental Status (Bipap mask in place) Constitutional: COMPLAINS OF: Fatigue, Generalized weakness, DENIES: Fever Eyes: DENIES: Eye inflammation Ears, nose, mouth, throat: DENIES: Running Nose, Epistaxis Respiratory: COMPLAINS OF: Shortness of breath Cardiovascular: COMPLAINS OF: Chest pain, Dyspnea on Exertion, Lower Extremity Edema Musculoskeletal: COMPLAINS OF: Stiffness Integumentary: DENIES: Rash Hematologic/Lymphatics: DENIES: Bruising Immunologic/Allergic: DENIES: Eczema Neurologic: COMPLAINS OF: Poor Balance, DENIES: Seizures, Tremor Psychiatric: COMPLAINS OF: Anxiety, Confusion, DENIES: Hallucinations, Agitation Other ROS: ROS not obtainable from patient due to respiratory distress, BiPap; clinical condition. Partial ROS obtained from chart review and from family report. Past Family Social History Coded Allergies: hydrochlorothiazide (Unverified Allergy, Severe, HIVES, 07/29/17) adhesive (Unverified Allergy, Intermediate, Rash, 07/29/17) allopurinol (Unverified Allergy, Intermediate, HIVES,FEVER, 07/29/17) Uncoded Allergies: PETROLIUM (Allergy, Severe, BLISTERS, 09/19/07) ANY PETROLIUM BASED MEDS LASIX (Allergy, Unknown, UNKNOWN, 11/25/11) VERIFIED WITH DAUGHTER, EVETTE ROSALES ON 11/25/11 Past Medical History Atrial fibrillation Congestive heart failure Chronic kidney disease Hypertension Osteoarthritis Hypothyroidism Hx GI bleed (peptic ulcer disease). Past Surgical History Thyroidectomy AV shunt placement and negation Left knee replacement Hysterectomy . Reported Medications Fish Oil 1200 mg ([place]-3 Fatty Acids) 360 Mg-1,200 Mg Cap 1 Cap PO DAILY Aspirin 81 (Aspirin) 81 Mg Tabdr 81 Mg PO DAILY Ferrous Sulfate 325 Mg (65 Mg Iron) Tablet 325 Mg PO DAILY Vitamin B-12 Cr (Cyanocobalamin) 1,000 Mcg Tab 500 Mcg PO DAILY B Complex (B-Complex Vitamins) 1 Cap 1 Cap PO DAILY Uloric (Febuxostat) 40 Mg Tab 40 Mg PO DAILY Bumetanide 1 Mg Tab 1 Mg PO DAILY Lipitor (Atorvastatin Calcium) 40 Mg Tab 40 Mg PO HS Gabapentin 300 Mg Cap 300 Mg PO HS Norvasc (Amlodipine Besylate) 5 Mg Tab 5 Mg PO DAILY Benicar (Olmesartan) 40 Mg Tab 40 Mg PO DAILY Coreg (Carvedilol) 6.25 Mg Tab 6.25 Mg PO BID Isosorbide Mononitrate ER (Isosorbide Mononitrate) 60 Mg Tab 60 Mg PO DAILY Synthroid (Levothyroxine Sodium) 50 Mcg Tab 50 Mcg PO DAILY . Current Medications Medications (Trade) Dose Ordered Sig/Rene Route Start Time Stop Time Status Last Admin (NS Flush) 2 ml UNSCH PRN IVF 07/29/17 11:15 07/30/17 08:46 (Zofran Inj) 4 mg Q8HR PRN IV PUSH 07/29/17 14:00 (Tylenol) 650 mg Q4H PRN PO 07/29/17 14:00 Dextrose/Sodium Chloride 1,000 ml @ 60 mls/hr [id number] IV 07/29/17 14:30 07/29/17 16:18 (Vasotec Inj) 1.25 mg Q8H PRN IV PUSH 07/29/17 14:30 (Lovenox Inj) 30 mg Q24H SQ 07/30/17 09:00 07/30/17 08:45 (Duoneb Neb) 1 ampule Q4HR NEB NEB 07/30/17 00:00 07/30/17 11:26 (Duoneb Neb) 1 ampule Q2HR NEB PRN NEB 07/29/17 21:45 (Norvasc) 5 mg DAILY PO 07/30/17 09:00 (Ecotrin Ec) 81 mg DAILY PO 07/30/17 09:00 (Lipitor) 40 mg HS PO 07/30/17 21:00 (Coreg) 6.25 mg BID PO 07/30/17 09:00 (Vitamin B12) 500 mcg DAILY PO 07/30/17 09:00 (Ferrous Sulfate) 325 mg DAILY PO 07/30/17 09:00 (Neurontin) 300 mg HS PO 07/30/17 21:00 (Imdur) 60 mg DAILY PO 07/30/17 09:00 (Synthroid) 50 mcg DAILY@0600 PO 07/30/17 06:00 07/30/17 05:44 (Allbee C) 1 tab DAILY PO 07/30/17 09:00 Patient Own Medication PT OWN MED: [id number]... DAILY PO 07/30/17 09:00 Future Hold (Pill Splitter) 1 ea UNSCH PRN OTHER 07/29/17 23:45 Dexmedetomidine HCl 200 mcg/ Sodium Chloride 50 ml @ 4.92 mls/hr TITRATE PRN IV 07/30/17 09:15 (D50w (Vial) Inj) 50 ml UNSCH PRN IV PUSH 07/30/17 11:00 (Glucagon Inj) 1 mg UNSCH PRN OTHER 07/30/17 11:00 (NovoLIN R SUPPLEMENTAL SCALE) 1 Q4H SQ 07/30/17 11:00 Ceftriaxone Sodium 1000 mg/ Sodium Chloride 100 ml @ 200 mls/hr Q24H IV 07/30/17 11:00 07/30/17 11:00 (Pepcid Inj) 10 mg Q12H IV PUSH 07/30/17 11:00 07/30/17 12:49 (SoluMEDROL INJ) 40 mg Q8HR IV PUSH 07/30/17 14:00 07/30/17 12:52 Family History Mother and father from heart disease; Three children; two alive and healthy; one of head and neck cancer in November 2016 . Substance Use Tobacco: none Alcohol: none Prescription med abuse: none Illicits:none . Psychosocial History Mrs Sutton was born in [facility]; she moved with her and children to [place] in 1955. She never worked outside the home but provided care to her when he was dying from pancreatic cancer as well as her son when he was dying of head and neck cancer. Spiritual/Cultural Factors [employer]. . Living Will: Copy in medical record Health Care Surrogate: Copy in medical record Date completed: 02/01/2009. . Health Care Surrogate(s): Patient designated Brandon Sutton as primary healthcare surrogate, alternate is Kennedi Sutton. They consent to serve in this role. . Documented care wishes: Living will with standard verbiage as it pertains to terminal condition or persistent vegetative state. Son and daughter are supportive of comfort care. . Today's verbally stated goals: Son and daughter both verbalize understanding of the likely end of life approaching; they are appropriately tearful but realistic about their mother's prognosis and are supportive of comfort care. Family/friends goals: Both son and daughter want their mother to be peaceful, comfortable and dignified at the end of her days. They are very amenable to a hospice consult. Ethical and Legal Issues Patient is not capacitated to make her own health care decisions; it is unclear if she will regain capacity although it is unlikely. She has a Living Will naming her son as her health care surrogate with daughter in law as the alternate. Per [place] statute her son will serve as her decision maker. Physical Exam Vital Signs Date Time Temp Pulse Resp B/P (MAP) Pulse Ox O2 Delivery O2 Flow Rate FiO2 07/30/17 11:26 0 50 07/30/17 08:27 94 50 07/30/17 08:00 103 07/30/17 07:00 234 19 145/70 (95) 77 07/30/17 07:00 70 Bi-Pap 50 07/30/17 06:00 178 07/30/17 04:00 103 07/30/17 03:33 97 40 07/30/17 03:00 96.6 115 19 115/57 (76) 96 07/30/17 02:00 79 07/30/17 00:00 85 07/30/17 00:00 100 Bi-Pap 50 07/30/17 00:00 97.1 85 15 100/50 (67) 100 07/29/17 23:51 99 50 07/29/17 22:23 97 50 07/29/17 22:11 07/29/17 22:05 100 Non-Rebreather 15.00 07/29/17 22:05 99 15.00 100 07/29/17 21:53 79 16 116/68 (84) 100 BiPAP 50 07/29/17 20:31 76 18 140/60 (86) 100 BiPAP 50 07/29/17 20:00 12 13 136/63 (87) 100 BiPAP 50 07/29/17 19:49 100 BiPAP 50 07/29/17 19:49 100 50 07/29/17 19:03 67 14 123/57 (79) 99 BiPAP 50 07/29/17 18:38 97 50 07/29/17 16:37 78 21 132/66 (88) 95 BiPAP 50 07/29/17 16:30 95 50 07/29/17 14:25 96 50 07/29/17 14:25 93 20 208/93 (131) 93 BiPAP 50 07/29/17 13:51 89 27 172/78 (109) 94 4.00 Exam CONSTITUTIONAL/GENERAL: This is an adequately nourished patient, resting quietly in bed, BiPap mask in place TUBES/LINES/DRAINS: BiPap mask; PIV; Mathews catheter SKIN: No jaundice, rashes, or lesions.. No wounds seen anteriorly. Skin temperature appropriate. Not diaphoretic. HEAD: Atraumatic. Normocephalic. EYES: Pupils equal and round and reactive. Extraocular motions intact. No scleral icterus. No injection or drainage. Brisk blink reflex ENT: Hearing grossly normal. Nose without bleeding or purulent drainage. Oral mucosa not visible secondary to BiPap mask NECK: Trachea midline. Supple, nontender. No palpable thyroid enlargement or nodularity. CARDIOVASCULAR: Irregular; no overt murmurs. No JVD. Peripheral pulses symmetric. RESPIRATORY/CHEST: Symmetric, unlabored respirations. Clear to auscultation. Diminished breath sounds throughout. GASTROINTESTINAL: Abdomen soft, rounded, non-tender Bowel sounds present. GENITOURINARY: Without palpable bladder distension. Mathews catheter in place. MUSCULOSKELETAL: Extremities without clubbing, mild edema. No joint tenderness or effusion noted. No calf tenderness. No mottling LYMPHATICS: No palpable cervical or supraclavicular adenopathy. NEUROLOGICAL: Lethargic; does not open eyes to name but does consistently squeeze fingers to command and wiggle toes. Moves all extremities. PSYCHIATRIC: Profoundly lethargic no evidence of anxiety or confusion. . Diagnostic Tests Laboratory Laboratory Tests Test 07/29/17 11:25 07/29/17 13:57 07/29/17 17:40 07/29/17 18:08 White Blood Count 9.1 TH/MM3 (4.0-11.0) Red Blood Count 3.65 MIL/MM3 (4.00-5.30) Hemoglobin 12.0 GM/DL (11.6-15.3) Hematocrit 37.2 % (35.0-46.0) Mean Corpuscular Volume 101.8 FL (80.0-100.0) Mean Corpuscular Hemoglobin 32.7 PG (27.0-34.0) Mean Corpuscular Hemoglobin Concent 32.1 % (32.0-36.0) Red Cell Distribution Width 16.3 % (11.6-17.2) Platelet Count 197 TH/MM3 (150-450) Mean Platelet Volume 8.5 FL (7.0-11.0) Neutrophils (%) (Auto) 70.3 % (16.0-70.0) Lymphocytes (%) (Auto) 19.5 % (9.0-44.0) Monocytes (%) (Auto) 9.2 % (0.0-8.0) Eosinophils (%) (Auto) 0.3 % (0.0-4.0) Basophils (%) (Auto) 0.7 % (0.0-2.0) Neutrophils # (Auto) 6.4 TH/MM3 (1.8-7.7) Lymphocytes # (Auto) 1.8 TH/MM3 (1.0-4.8) Monocytes # (Auto) 0.8 TH/MM3 (0-0.9) Eosinophils # (Auto) 0.0 TH/MM3 (0-0.4) Basophils # (Auto) 0.1 TH/MM3 (0-0.2) CBC Comment AUTO DIFF Differential Total Cells Counted 100 Neutrophils % (Manual) 74 % (16-70) Lymphocytes % 15 % (9-44) Monocytes % 9 % (0-8) Eosinophils % 1 % (0-4) Neutrophils # (Manual) 6.8 TH/MM3 (1.8-7.7) Metamyelocytes 1 % (0-1) Nucleated Red Blood Cells 4 /100 WBC (0-0) Differential Comment FINAL DIFF MANUAL Platelet Estimate NORMAL (NORMAL) Platelet Morphology Comment NORMAL (NORMAL) Ovalocytes 1+ (NORMAL) Blood Urea Nitrogen 30 MG/DL (7-18) Creatinine 2.18 MG/DL (0.50-1.00) Random Glucose 107 MG/DL (74-106) Total Protein 7.2 GM/DL (6.4-8.2) Albumin 3.5 GM/DL (3.4-5.0) Calcium Level 8.7 MG/DL (8.5-10.1) Alkaline Phosphatase 56 U/L (45-117) Aspartate Amino Transf (AST/SGOT) 9 U/L (15-37) Alanine Aminotransferase (ALT/SGPT) 18 U/L (10-53) Total Bilirubin 0.5 MG/DL (0.2-1.0) Sodium Level 144 MEQ/L (136-145) Potassium Level 4.6 MEQ/L (3.5-5.1) Chloride Level 107 MEQ/L (98-107) Carbon Dioxide Level 33.2 MEQ/L (21.0-32.0) Anion Gap 4 MEQ/L (5-15) Estimat Glomerular Filtration Rate 21 ML/MIN (>89) B-Type Natriuretic Peptide 861 PG/ML (0-100) Blood Gas Puncture Site RT RADIAL RT RADIAL Blood Gas Patient Temperature 98.6 98.6 Blood Gas HCO3 31 mmol/L (22-26) 32 mmol/L (22-26) Blood Gas Base Excess 0.8 mmol/L (-2-2) 1.1 mmol/L (-2-2) Blood Gas Oxygen Saturation 93 % (90-100) 93 % (90-100) Arterial Blood pH 7.03 (7.380-7.420) 7.02 (7.380-7.420) Arterial Blood Partial Pressure CO2 124 mmHg (38-42) 128 mmHg (38-42) Arterial Blood Partial Pressure O2 99 mmHG (61-120) 87 mmHG (61-120) Arterial Blood Oxygen Content 15.7 Vol % (12.0-20.0) 15.1 Vol % (12.0-20.0) Arterial Blood Carboxyhemoglobin 2.1 % (0-4) 2.2 % (0-4) Arterial Blood Methemoglobin 0.5 % (0-2) 0.5 % (0-2) Blood Gas Hemoglobin 11.9 G/DL (12.0-16.0) 11.5 G/DL (12.0-16.0) Oxygen Delivery Device NASAL CANNULA BIPAP Blood Gas Liter Flow 3 L/M Blood Gas Ventilator Setting [id number] Blood Gas Inspired Oxygen 50 % Urine Color YELLOW (YELLW/STRAW) Urine Turbidity HAZY (CLEAR) Urine pH 5.5 (5.0-8.5) Urine Specific Speer 1.014 (1.002-1.035) Urine Protein 100 mg/dL (NEG-TRACE) Urine Glucose (UA) NEG mg/dL (NEG) Urine Ketones NEG mg/dL (NEG) Urine Occult Blood NEG (NEG) Urine Nitrite NEG (NEG) Urine Bilirubin NEG (NEG) Urine Urobilinogen LESS THAN 2.0 MG/DL (LESS Urine Leukocyte Esterase LARGE (NEG) Urine RBC 1 /hpf (0-3) Urine WBC 14 /hpf (0-5) Urine Squamous Epithelial Cells 1 /hpf (0-5) Urine Amorphous Sediment RARE Urine Bacteria MANY /hpf (NONE) Urine Hyaline Casts 3 /lpf (RARE) Microscopic Urinalysis Comment CATH-CULTURE IND Test 07/29/17 19:24 07/29/17 20:46 07/29/17 22:54 07/30/17 05:35 Blood Gas Puncture Site RT RADIAL RT RADIAL RT RADIAL Blood Gas Patient Temperature 98.6 98.6 98.6 Blood Gas HCO3 32 mmol/L (22-26) 31 mmol/L (22-26) 32 mmol/L (22-26) Blood Gas Base Excess 1.7 mmol/L (-2-2) 2.3 mmol/L (-2-2) 4.1 mmol/L (-2-2) Blood Gas Oxygen Saturation 93 % (90-100) 93 % (90-100) 93 % (90-100) Arterial Blood pH 7.04 (7.380-7.420) 7.12 (7.380-7.420) 7.21 (7.380-7.420) Arterial Blood Partial Pressure CO2 124 mmHg (38-42) 99 mmHg (38-42) 82 mmHg (38-42) Arterial Blood Partial Pressure O2 84 mmHG (61-120) 81 mmHG (61-120) 80 mmHg (61-120) Arterial Blood Oxygen Content 14.8 Vol % (12.0-20.0) 14.8 Vol % (12.0-20.0) 14.3 Vol % (12.0-20.0) Arterial Blood Carboxyhemoglobin 2.2 % (0-4) 2.3 % (0-4) 2.0 % (0-4) Arterial Blood Methemoglobin 0.5 % (0-2) 0.5 % (0-2) 1.1 % (0-2) Blood Gas Hemoglobin 11.3 G/DL (12.0-16.0) 11.2 G/DL (12.0-16.0) 10.9 G/DL (12.0-16.0) Oxygen Delivery Device BiPAP BiPAP BIPAP Blood Gas Ventilator Setting [id number]/EPAP5 18/5 Blood Gas Inspired Oxygen 50 % 50 % 40 % Nasal Screen MRSA (PCR) MRSA NOT DETECTED (NOT Test 07/30/17 13:12 White Blood Count 8.5 TH/MM3 (4.0-11.0) Red Blood Count 3.39 MIL/MM3 (4.00-5.30) Hemoglobin 11.1 GM/DL (11.6-15.3) Hematocrit 34.5 % (35.0-46.0) Mean Corpuscular Volume 101.9 FL (80.0-100.0) Mean Corpuscular Hemoglobin 32.7 PG (27.0-34.0) Mean Corpuscular Hemoglobin Concent 32.1 % (32.0-36.0) Red Cell Distribution Width 16.7 % (11.6-17.2) Platelet Count 174 TH/MM3 (150-450) Mean Platelet Volume 8.7 FL (7.0-11.0) Neutrophils (%) (Auto) 80.3 % (16.0-70.0) Lymphocytes (%) (Auto) 10.5 % (9.0-44.0) Monocytes (%) (Auto) 8.6 % (0.0-8.0) Eosinophils (%) (Auto) 0.3 % (0.0-4.0) Basophils (%) (Auto) 0.3 % (0.0-2.0) Neutrophils # (Auto) 6.9 TH/MM3 (1.8-7.7) Lymphocytes # (Auto) 0.9 TH/MM3 (1.0-4.8) Monocytes # (Auto) 0.7 TH/MM3 (0-0.9) Eosinophils # (Auto) 0.0 TH/MM3 (0-0.4) Basophils # (Auto) 0.0 TH/MM3 (0-0.2) CBC Comment AUTO DIFF Result Diagram: 07/30/17 1312 07/29/17 1125 Microbiology Microbiology Date/Time Source Procedure Growth Status 07/29/17 18:08 Urine Catheterized Urine Urine Culture Pending Received Imaging Last 72 hours Impressions Chest X-Ray 07/29/17 1103 Signed Impressions: Service Date/Time: July 11:38 - CONCLUSION: Normal examination except for some increased density left lung base could be a small area of consolidation or pleural effusion. Van Salmon MD Patient/Family Conference Present at Family Conference: Son Brandon Sutton and daughter Evette Rosales were present for family conference. Family Conference Time (mins): 40 Family Conference Location: Consult Room (in [facility]) Issues Discussed: * Palliative care role, purpose, approach * Additional medical, psychosocial, and spiritual history * Patients general health, functional status, and cognitive changes in the months leading up to the current hospitalization * Patient/family understanding of the current medical problems * Code status: DNR/DNI * Patient/family understanding of prognosis * Patients goals of care as best understood from advance directives and/or conversations and/or values * Current medical treatment options and benefits/burdens of those options * Likely scenarios comparing ongoing aggressive care with a transition to comfort measures only * Questions answered to the best of my ability * Palliative care contact information provided * Hospice philosophy and benefits . Assessment and Plan Disease Oriented Problem List: (1) Hypercapnic respiratory failure (2) Congestive heart failure (3) Chronic kidney disease (4) UTI (urinary tract infection) (5) Hypertension Symptom Scale: (1) Dyspnea 0-10 Scale: Unable to quantify Comment: Continuing Bipap, duonebs, steroids (2) Pain 0-10 Scale: Unable to quantify (3) Debility 0-10 Scale: Unable to quantify Comment: Hospice consult Pertinent Non-Medical Issues Psychosocial: Son and daughter are tearful but quite realistic in their appraisal of their mother's condition and likely decline. They are willing to consider a hospice care center but do not wish to make this transition tonight ( Sunday 07/30). Spiritual: [employer]. Legal:Patient executed a Living Will in 2008; terms were reviewed with son who is named as health care surrogate and he agrees to participate in this role Ethical issues impacting care: none identified at this time. . Important Contacts Son Brandon Sutton and his Kennedi Sutton [phone] Daughter Evette Johansen . . Prognosis Given her advanced age and multiple comorbidities including congestive heart failure, respiratory failure, and chronic kidney disease, recovery is unlikely. PPS 10-20; likely hours to days before end of life. Patient likely hospice appropriate should family elects comfort-directed care. . Code Status: No Code Plan * Healthcare decision making: Patient unable to participate in medical decision- making secondary to clinical condition, obtunded. Unlikely to regain capacity given her progressive illness. She executed a valid Living Will naming her son Brandon Sutton as health care surrogate with Brandon's Kennedi as alternate; they have agreed to participate. * CODE STATUS: NO CODE: DNR/DNI. This has been confirmed with healthcare surrogate Brandon. * Goals of care: Family electing to continue conservative management at this time. Family considering transitioning patient to comfort-directed care with hospice given progressive decline an acute complications. Hospice consult has been placed. Follow-up Monday 07/31 as per family's request. * Discussed with bedside nurse, [facility] charge nurse and hospice intake * SYMPTOMS: dyspnea - continue Bipap, steroids, duonebs; debility - hospice consult; pain - due to osteoarthritis; with renal dysfunction, consider hydromorphone prn * Palliative care will continue to follow to assist with symptom management throughout hospital course. * Palliative care contact information has been provided to patient's family. . Time Spent Total Floor Time (mins): 68 (Total time to include review and summarization of available medical records to include prior hospitalizations, physical exam, goals of care conversation with family, case discussion with bedside RN and hospice.) >50% Counseling/Coord of Care: Yes Thank you for the opportunity to participate in the care of Ms. Sutton. Attestation To help prompt me to consider important information that might be impacting today's encounter and assessment, information from prior notes written by myself or my colleagues may have been "brought forward" into today's note. My signature on this note, however, is an attestation that I personally performed the exam, history and/or decision-making noted today, and unless otherwise indicated, the interactions with patient, family and staff as well as the review of records all occurred today. I also attest that the listed assessment and stated plan reflect my best clinical judgment today based on the combination of historical information, prior notes, and today's exam/ interactions. When time spent is documented, it refers only to time spent today by the signer, or if indicated, combined time spent today by collaborating physician/nurse practitioner. Jerica Gallardo Jul 30, 2017 13:57
[2017-07-30 14:10] LABS: BANDS 1 % (0-6); BASOPHILS 1 % (0-2); CORRECTED NUCLEATED RBC 3 /100 WBC (0-0); LYMPHOCYTES 7 % (9-44); MONOCYTES 3 % (0-8); NEUTROPHIL # MANUAL DIFF 7.6 TH/MM3 (1.8-7.7); NUCLEATED RED BLOOD CELL 3 (0-0); POLYS (SEG NEUTROPHILS) 88 % (16-70)
[2017-07-30 14:11] LABS: OVALOCYTES 1+ (NORMAL)
[2017-07-30] MEDS: DEXT 5%-NACL 0.9% 1000 ML INJ 1,000 ML IV SCH (16:00)
--- NOTE | 2017-07-30 20:16 | MB ---
cc: AGNES CASAS DATE OF CONSULTATION: 07/30/2017. REASON FOR CONSULTATION: Respiratory failure and congestive heart failure. HISTORY OF PRESENT ILLNESS: This is an 87-year-old lady with a past history of congestive heart failure, chronic kidney disease, and hypertension. She was brought to the emergency room with altered mental status. The patient apparently has been poorly responsive and has been quite weak for the last few days and also had some leg edema and became poorly responsive and thus was brought to the ER and subsequently admitted to the ICU. She has been placed on a BiPAP mask since she was in respiratory failure and her initial CBC showed a white count of 9.1 with a hemoglobin of 12. A chest x-ray was done which showed increased density in the left base with a small pleural effusion or consolidation. The patient was started on BiPAP as well as placed on IV Solu-Medrol 40 milligrams and Rocephin 1 gram daily. The patient is presently on IV fluids for hydration. She is poorly responsive still and family is at the bedside giving most of the information. There is no history of chest pains, fevers or chills. PAST MEDICAL HISTORY: 1. History for hypertension. 2. Congestive heart failure. 3. Chronic kidney disease. 4. Hypothyroidism. 5. She is not known to have chronic lung disease. PAST SURGICAL HISTORY: 1. Knee replacement surgery bilaterally. 2. History for thyroidectomy. 3. History for AV fistula for chronic kidney disease stage IV. HABITS: The patient does not smoke. No significant alcohol use. ALLERGIES: 1. HYDROCHLOROTHIAZIDE. 2. ALLOPURINOL. 3. TAPE. MEDICATION LIST: 1. Aspirin 81 milligrams a day. 2. Uloric 40 milligrams daily. 3. Bumex 1 milligram daily. 4. Lipitor 40 milligrams at bedtime. 5. Norvasc 5 milligrams a day. 6. Benicar 40 milligrams daily. 7. Coreg 6.25 milligrams twice a day. 8. Isordil 60 milligrams daily. 9. Synthroid 50 micrograms a day. FAMILY HISTORY: Family history was essentially noncontributory. REVIEW OF SYSTEMS: The patient is unable to respond to any questions and seems quite lethargic and on BiPAP. PHYSICAL EXAMINATION: GENERAL: This elderly white female is lethargic on BiPAP and 02 saturations are 96% on BiPAP at 12/5 and 50%. HEAD, EYES, EARS, NOSE, THROAT: Head normocephalic. The pupils are reactive. The sclerae were injected. The throat has secretions. Ears have no inflammation. NECK: The neck is supple. No lymphadenopathy. There is mild venous distention while lying flat. Trachea is midline. CHEST: Equal movements with distant breath sounds and a few wheezes anteriorly. HEART: Heart sounds are irregular. S1 and S2 with no murmur. No S3. ABDOMEN: Abdomen soft and nontender. The bowel sounds are active. No organomegaly. EXTREMITIES: Edema 2+. Decreased pulses. NEUROLOGIC: The patient withdraws to stimuli but does not respond to commands. Reflexes are 1+ and diminished. SKIN: No lesions. IMPRESSION: 1. Hypercapnic respiratory failure. 2. Chronic congestive heart failure. 3. Acute renal failure and chronic kidney disease. 4. Hypertension. 5. Encephalopathy. 6. Possible sepsis. PLAN: The patient has been placed on BiPAP 12/5 and 50% FIO2 and maintain saturations over 92%. Her urine output is markedly diminished and nephrology consultation to be requested with regards to her renal function. Nebulized DuoNeb solution added four times a day. Continue the Rocephin 1 gram IV daily and Solu-Medrol 40 milligrams IV q.8 h. Chest x-ray to be repeated. The patient has been made a DNR per family request and palliative care is going to consult today. We will continue all conservative measures as planned and will follow the case with you, Dr. Ybarra. Thank you for this consultation. MD TRACEY Zamora/HAFSA /6:30 PM /7:45 PM
[2017-07-30] MEDS ORDERED: ATORVASTATIN 40 MG TAB PO SCH (21:00)
[2017-07-30] MEDS ORDERED: GABAPENTIN 300 MG CAP PO SCH (21:00)
[2017-07-30] MEDS: DEXMEDETOMIDINE INJ 400 MCG in SODIUM CHLORIDE 0.9% INJ 96 ML IV PRN (21:05)
--- NOTE | 2017-07-30 21:36 | MB ---
cc: TANG WALTON MD DATE OF CONSULTATION 07/21/17 HISTORY OF PRESENT ILLNESS An 87 year-old white female, patient of Dr. Sheffield, with history of atrial fibrillation, chronic diastolic congestive heart failure, hypertension, stage IV chronic kidney disease. She presented with altered mental status. She was started on BiPap for severe respiratory acidosis. She has not had any improvement of her mental status. She was seen by palliative service and hospice was consulted. PAST MEDICAL HISTORY 1. Atrial fibrillation, 2. Chronic diastolic congestive heart 3. Hypertension, 4. Stage IV chronic kidney disease. 5. Dyslipidemia. 6. Hypothyroidism 7. History of cataract surgery 8. Abdominal surgery, 9. Hysterectomy, 10. Bilateral knee replacement 11. Wrist surgery, 12. Thyroid surgery, 13. Left arm fistula MEDICATIONS 1. Synthroid 2. Isosorbide 3. Coreg. 4. Benicar 5. Norvasc 6. Gabapentin 7. Lipitor 8. Bumex 10. B complex 11. Vitamin B12 12. Iron 13. Aspirin 14. Fish oil ALLERGIES HYDROCHLOROTHIAZIDE ALLOPURINOL ADHESIVES LASIX SERTRALINE FAMILY HISTORY Positive for coronary artery disease. SOCIAL HISTORY The patient does not smoke, does not drink alcohol. She has been walking around the house using her cane until recently. REVIEW OF SYSTEMS Otherwise negative. PHYSICAL EXAMINATION VITAL SIGNS: Blood pressure 140/70, pulse 99 and irregular. HEENT: The patient is on bypass. She is lethargic. NECK: 2+ carotid upstrokes. LUNGS: Clear. HEART: Irregular with no murmur, gallop. ABDOMEN: Soft. No bruits. EXTREMITIES: With pedal edema. 1+ distal pulses NEUROLOGIC: Grossly nonfocal. CARDIOLOGY STUDIES EKG was reviewed and showed atrial fibrillation and low voltage and delayed R-wave progression over precordial leads, no acute changes. LABORATORY DATA Hemoglobin 11,1, potassium 4.5, creatinine 2.4, AST and ALT normal. BNP is 861 and 250. DIAGNOSES 1. Altered mental status. 2. Respiratory failure 3. Hypertension 4. Congestive heart failure 5. Left ventricular diastolic dysfunction 6. Chronic kidney disease stage IV 7. Chronic atrial fibrillation DISPOSITION We will continue ICU care. The patient's mental status is not improving. She has required BiPap for her hypercarbic respiratory acidosis. At this time, her prognosis is grave. She is DNR/DNI and she had palliative consultation. Evaluation by hospice is recommended. MD SHREE English/ /7:43 PM /9:08 PM JADA
[2017-07-31] VITALS (12 sets, daily range): BP systolic 149–183; BP diastolic 68–85; PULSE 78–103; RESP 15–20; TEMP 98.1–98.9; O2SAT 97–100
[2017-07-31] MEDS: RESP: ALBUTEROL 2.5 MG/IPRATROPIUM 0.5 MG NEB (SCH) NEB ×4 (00:24→11:29)
[2017-07-31] MEDS: DEXMEDETOMIDINE INJ 400 MCG in SODIUM CHLORIDE 0.9% INJ 96 ML IV PRN ×5 (02:04→14:43)
[2017-07-31] MEDS: DEXT 5%-NACL 0.9% 1000 ML INJ 1,000 ML IV SCH (02:04)
[2017-07-31] MEDS: INSULIN NovoLIN REGULAR SUPPLEMENTAL SCALE SQ SCH ×4 (03:00→14:44)
[2017-07-31] MEDS: LEVOTHYROXINE SODIUM 50 MCG TAB PO SCH (05:08)
[2017-07-31] MEDS: methylPREDNISolone SOD SUCC 40 MG/1 ML VIAL IV PUSH SCH ×2 (05:08→14:43)
--- NOTE | 2017-07-31 05:13 | RADRPT ---
EXAM DATE/TIME: 07/31/2017 03:29 [facility] COMPARISON: CHEST SINGLE AP, July 29, 2017, 11:38. INDICATIONS : Shortness of breath, possible pulmonary disease. MEDICAL HISTORY : Renal failure, acute. SURGICAL HISTORY : None. ENCOUNTER: Subsequent ACUITY: 2 days PAIN SCORE: Non-responsive. LOCATION: Bilateral chest FINDINGS: Persistent left lower lobe airspace disease and likely associated trace pleural effusion. Developing airspace disease in the right lower lobe. Cardiac silhouette is enlarged with indistinct central pulm onary vascularity. Remainder of exam is unchanged. CONCLUSION: 1. Cardiomegaly with mild positive fluid balance. 2. Persistent left lower lobe airspace disease and small associated effusion. 3. Developing right lower lobe airspace disease. Spencer Fernandes MD on July 31, 2017 at 5:10 Board Certified Radiologist. This report was verified electronically.
[2017-07-31 06:13] LABS: AUTOMATED NEUTROPHIL # 4.4 TH/MM3 (1.8-7.7); HEMATOCRIT 36.9 % (35.0-46.0); HEMOGLOBIN 12.1 GM/DL (11.6-15.3); LYMPH % 8.9 % (9.0-44.0); LYMPHOCYTE # 0.4 TH/MM3 (1.0-4.8); MEAN CELL VOLUME 100.3 FL (80.0-100.0); MEAN CORPUSCULAR HGB CONC 32.9 % (32.0-36.0); MEAN PLATELET VOLUME 8.5 FL (7.0-11.0); MONO % 1.7 % (0.0-8.0); MONOCYTE # 0.1 TH/MM3 (0-0.9); NEUT % 89.4 % (16.0-70.0); PLATELET COUNT 140 TH/MM3 (150-450); RED BLOOD COUNT 3.68 MIL/MM3 (4.00-5.30); RED CELL DISTRIBUTION WIDTH 16.1 % (11.6-17.2); WHITE BLOOD COUNT 4.9 TH/MM3 (4.0-11.0)
[2017-07-31 06:34] LABS: BICARBONATE 30.8 MEQ/L (21.0-32.0); CREATININE 2.17 MG/DL (0.50-1.00)
[2017-07-31 07:34] LABS: CORRECTED NUCLEATED RBC 2 /100 WBC (0-0); LYMPHOCYTES 6 % (9-44); MONOCYTES 3 % (0-8); NEUTROPHIL # MANUAL DIFF 4.5 TH/MM3 (1.8-7.7); NUCLEATED RED BLOOD CELL 2 (0-0); POLYS (SEG NEUTROPHILS) 91 % (16-70)
[2017-07-31] MEDS: VITAMIN B COMPLEX/VIT C TAB PO SCH (07:40)
[2017-07-31] MEDS: CARVEDILOL 6.25 MG TAB PO SCH (07:40)
[2017-07-31] MEDS: ASPIRIN EC 81 MG TABEC PO SCH (07:40)
[2017-07-31] MEDS: FERROUS SULFATE 325 MG (65 MG ELEMENTAL IRON) TAB PO SCH (07:40)
[2017-07-31] MEDS: CYANOCOBALAMIN 1,000 MCG TAB PO SCH (07:41)
[2017-07-31] MEDS: ISOSORBIDE MONONITRATE 60 MG TAB PO SCH (07:41)
[2017-07-31] MEDS: amLODIPine BESYLATE 5 MG TAB PO SCH (07:41)
[2017-07-31] MEDS: FAMOTIDINE 20 MG/2 ML VIAL IV PUSH SCH (09:49)
[2017-07-31] MEDS: ENOXAPARIN SODIUM 30 MG/0.3 ML SYRINGE SQ SCH (09:50)
[2017-07-31] MEDS: SODIUM CHLORIDE 0.9% FLUSH 10 ML FLUSH IVF PRN (09:50)
--- NOTE | 2017-07-31 10:13 | HHI.CCPN ---
Subjective Remarks/Hospital Course 87-year-old female with history of CHF, hypertension, CKD, was brought with altered mental status. Per chart review the patient hasn't been as active for the past few days. She lives alone but being helped by the daughter few days a week. She normally walks around the house with using her cane. She was initially admitted to hospitalist service with severe hypercarbic respiratory acidosis and was placed on BiPAP. There was no improvement in patient's mentation or respiratory condition as well as lab results on ABG and critical care service was consulted. 07/30 Patient was on BIPAP 18/5 with 50%FIO2. She was agitated , restless and subsequently placed on Precedex drip. Afebrile. 07/31 Patient is on 4L oxygen with good sats, on Precedex drip 1.5mics. Afebrile. Objective Vital Signs Date Time Temp Pulse Resp B/P (MAP) Pulse Ox O2 Delivery O2 Flow Rate FiO2 07/31/17 08:46 100 Non-Rebreather 12.00 07/31/17 06:00 81 07/31/17 04:00 98.9 15 160/73 (102) 07/31/17 03:57 50 Intake and Output 07/31/17 07/31/17 08/01/17 08:00 16:00 00:00 Intake Total 1528 ml Output Total 350 ml Balance 1178 ml Result Diagram: 07/31/17 0550 07/31/17 0550 Other Results Laboratory Tests Test 07/30/17 13:12 07/31/17 05:50 White Blood Count 8.5 TH/MM3 4.9 TH/MM3 Red Blood Count 3.39 MIL/MM3 3.68 MIL/MM3 Hemoglobin 11.1 GM/DL 12.1 GM/DL Hematocrit 34.5 % 36.9 % Mean Corpuscular Volume 101.9 FL 100.3 FL Mean Corpuscular Hemoglobin 32.7 PG 33.0 PG Mean Corpuscular Hemoglobin Concent 32.1 % 32.9 % Red Cell Distribution Width 16.7 % 16.1 % Platelet Count 174 TH/MM3 140 TH/MM3 Mean Platelet Volume 8.7 FL 8.5 FL Neutrophils (%) (Auto) 80.3 % 89.4 % Lymphocytes (%) (Auto) 10.5 % 8.9 % Monocytes (%) (Auto) 8.6 % 1.7 % Eosinophils (%) (Auto) 0.3 % 0.0 % Basophils (%) (Auto) 0.3 % 0.0 % Neutrophils # (Auto) 6.9 TH/MM3 4.4 TH/MM3 Lymphocytes # (Auto) 0.9 TH/MM3 0.4 TH/MM3 Monocytes # (Auto) 0.7 TH/MM3 0.1 TH/MM3 Eosinophils # (Auto) 0.0 TH/MM3 0.0 TH/MM3 Basophils # (Auto) 0.0 TH/MM3 0.0 TH/MM3 CBC Comment AUTO DIFF AUTO DIFF Differential Total Cells Counted 100 100 Neutrophils % (Manual) 88 % 91 % Band Neutrophils % 1 % Lymphocytes % 7 % 6 % Monocytes % 3 % 3 % Basophils % 1 % Neutrophils # (Manual) 7.6 TH/MM3 4.5 TH/MM3 Nucleated Red Blood Cells 3 /100 WBC 2 /100 WBC Differential Comment FINAL DIFF MANUAL FINAL DIFF MANUAL Platelet Estimate NORMAL LOW Platelet Morphology Comment NORMAL NORMAL Basophilic Stippling FAINT Ovalocytes 1+ Blood Urea Nitrogen 36 MG/DL 38 MG/DL Creatinine 2.42 MG/DL 2.17 MG/DL Random Glucose 93 MG/DL 171 MG/DL Total Protein 6.3 GM/DL Albumin 3.0 GM/DL Calcium Level 8.5 MG/DL 8.0 MG/DL Phosphorus Level 4.3 MG/DL Magnesium Level 2.4 MG/DL Alkaline Phosphatase 50 U/L Aspartate Amino Transf (AST/SGOT) 12 U/L Alanine Aminotransferase (ALT/SGPT) 14 U/L Total Bilirubin 0.3 MG/DL Sodium Level 142 MEQ/L 142 MEQ/L Potassium Level 4.5 MEQ/L 4.9 MEQ/L Chloride Level 104 MEQ/L 105 MEQ/L Carbon Dioxide Level 33.1 MEQ/L 30.8 MEQ/L Anion Gap 5 MEQ/L 6 MEQ/L Estimat Glomerular Filtration Rate 19 ML/MIN 21 ML/MIN B-Type Natriuretic Peptide 250 PG/ML Imaging Last Impressions Chest X-Ray 07/31/17 0600 Signed Impressions: Service Date/Time: Monday, July 31, 2017 03:29 - CONCLUSION: 1. Cardiomegaly with mild positive fluid balance. 2. Persistent left lower lobe airspace disease and small associated effusion. 3. Developing right lower lobe airspace disease. Spencer Fernandes MD Objective Remarks GENERAL: Patient is 87 yo on 4L oxygen and on Precedex drip SKIN: Warm and dry. HEAD: Normocephalic. EYES: No scleral icterus. No injection or drainage. NECK: Supple, trachea midline. No JVD or lymphadenopathy. CARDIOVASCULAR: Regular rate and rhythm without murmurs, gallops, or rubs. RESPIRATORY: Breath sounds equal bilaterally. No accessory muscle use. GASTROINTESTINAL: Abdomen soft, non-tender, nondistended. Neuro: Awake A/P Assessment and Plan Plan Neuro: Monitor neuro status and avoid sedatives Precedex drip for agitation Pulm: Respiratory failure - Hypercarbic respiratory acidosis - DuoNeb scheduled and when necessary - BiPAP, solumederol 60mg Q8 - Pulmonary is following- Dr. Gorman - Patient is DNR/DNI status CV: CHF Hypertension Monitor HR and BP keep MAP>65mmHg - On Norvasc, Coreg, ASA, Imdur , Lipitor. Losartan held for renal dysfunction : Chronic kidney disease - Monitor renal function, I/O's, avoid nephrotoxins -On D5NS@60ml/hr, ID: UTI On Rocephin 1gram daily. Monitor for signs of infections ( Fever, WBC) urine cx: GNR Endo: Hypothyroidism - Continue Levothyroxine -SSI to maintain Euglycemia Heme: Monitor CBC. on FeSO4 325mg daily GI: Speech eval, diet per speech DVT GI prophylaxis - Teds SCDs/Lovenox - Pepcid Palliative care is following. Family met with hospice and she will be discharged later today to hospice care center Code status: No code DNR Level 2 Nicholas Lewis MD Jul 31, 2017 10:13
[2017-07-31] MEDS ORDERED: HALOPERIDOL LACTATE 5 MG/ML AMP IV PUSH ONE ×2 (10:15→16:30)
[2017-07-31] MEDS: cefTRIAXone INJ 1,000 MG in SODIUM CHLORIDE 0.9% INJ 100 ML IV SCH (10:56)
--- NOTE | 2017-07-31 12:44 | HHI.PR ---
Subjective Remarks Has some wheezing. Off BiPAP and on N/C 5 L Family wishes comfort care. Objective Vital Signs Date Time Temp Pulse Resp B/P (MAP) Pulse Ox O2 Delivery O2 Flow Rate FiO2 07/31/17 10:00 83 07/31/17 08:46 100 Non-Rebreather 12.00 07/31/17 08:00 100 Non-Rebreather 15.00 07/31/17 08:00 98.1 78 16 149/72 (97) 100 07/31/17 08:00 78 07/31/17 06:00 81 07/31/17 04:00 98.9 79 15 160/73 (102) 99 07/31/17 04:00 79 07/31/17 03:57 99 50 07/31/17 02:00 84 07/31/17 00:24 98 50 07/31/17 00:24 98 BiPAP 50 07/31/17 00:00 98.2 83 17 160/68 (98) 97 07/31/17 00:00 83 07/30/17 22:00 87 07/30/17 20:00 98.0 110 22 128/62 (84) 95 07/30/17 20:00 110 07/30/17 19:58 98 50 07/30/17 19:00 98 Non-Rebreather 15.00 07/30/17 18:00 115 07/30/17 17:32 100 50 07/30/17 16:00 98.7 96 18 157/105 (122) 99 07/30/17 16:00 96 07/30/17 14:00 101 I/O 07/30/17 07/30/17 07/30/17 07/31/17 07/31/17 07/31/17 07:00 15:00 23:00 07:00 15:00 23:00 Intake Total 723 ml 160 ml 1528 ml 200 ml Output Total 250 ml 325 ml 350 ml Balance 473 ml 160 ml -325 ml 1178 ml 200 ml Intake Oral 0 ml IV Total 723 ml 160 ml 1528 ml 200 ml Output Urine Total 250 ml 325 ml 350 ml # Bowel Movements 0 0 Result Diagram: 07/31/17 0550 07/31/17 0550 Objective Remarks GENERAL: This elderly white female is lethargic HEAD, EYES, EARS, NOSE, THROAT: Head normocephalic. The pupils are reactive. The sclerae were injected. The throat has secretions. Ears have no inflammation. NECK: The neck is supple. No lymphadenopathy. There is mild venous distention while lying flat. Trachea is midline. CHEST: Equal movements with distant breath sounds and a few wheezes anteriorly. Occ Basal crackles. HEART: Heart sounds are irregular. S1 and S2 with no murmur. No S3. ABDOMEN: Abdomen soft and nontender. The bowel sounds are active. No organomegaly. EXTREMITIES: Edema 1+. Decreased pulses. NEUROLOGIC: The patient withdraws to stimuli but does not respond to commands. Reflexes are 1+ and diminished. SKIN: No lesions. Assessment and Plan Assessment and Plan IMPRESSION: 1. Hypercapnic respiratory failure. 2. Chronic congestive heart failure. 3. Acute renal failure and chronic kidney disease. 4. Hypertension. 5. Encephalopathy. 6. Possible sepsis. Plan : 1. O2 5 L. 2. Comfort measures and Ativan for agitation. 3. Nebs tid PRN Duoneb. 4. Transfer to Hospice care Suri Gorman MD Jul 31, 2017 12:44
== END 2017-07-31 17:10 | disposition hospice, inpatient (51) | DRG 291 ==
LOC: NEPE 10:33 → NEDA 14:03 → NEDH 19:33 → HIMN 22:10 → UNDODISIN 07-31 17:10
PROVIDERS: ADMIT Internal Medicine Critical Care Medicine; ATTEND Internal Medicine Critical Care Medicine
PROC: 5A09457 Assistance with Respiratory Ventilation, 24-96 Consecutive Hours, Continuous Positive Airway Pressure (ICD-10-PCS; principal; 2017-07-29)
DX: I50.33 Acute on chronic diastolic (congestive) heart failure (principal); J96.02 Acute respiratory failure with hypercapnia; E87.2 Acidosis; N18.4 Chronic kidney disease, stage 4 (severe); N17.9 Acute kidney failure, unspecified; I13.0 Hypertensive heart and chronic kidney disease with heart failure and stage 1 through stage 4 chronic kidney disease, or unspecified chronic kidney disease; N39.0 Urinary tract infection, site not specified; J44.9 Chronic obstructive pulmonary disease, unspecified; I48.91 Unspecified atrial fibrillation; E03.9 Hypothyroidism, unspecified; M10.9 Gout, unspecified; Z66 Do not resuscitate; Z51.5 Encounter for palliative care; Z79.82 Long term (current) use of aspirin; H91.90 Unspecified hearing loss, unspecified ear; Z96.653 Presence of artificial knee joint, bilateral
CPT/HCPCS: 36600; 71045; 80048; 80053; 81001; 82805; 83735; 83880; 84100; 85007; 85027; 87077; 87086; 87186; 87641; 93005; 94002; 94003; 94640; 94664; 96374; J0696; J1630; J1650; J1940; J2060; J2920; J7042